=== PATIENT | female | born 1970 | race Caucasian/White ===

== ENCOUNTER 2018-05-07 19:24 | Emergency (ER) | payer MEDICARE, MEDICAID, SELFPAY ==
[2018-05-07] VITALS (24 sets, daily range): BP systolic 130–150; BP diastolic 64–91; PULSE 86–92; RESP 10–28; TEMP 37.1; O2SAT 95–100
--- NOTE | 2018-05-07 20:29 | ED.GENADUL_ITS ---
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 Normal tele and ecg. Has no abdominal pain now so do not feel imaging indicated as unlikely entities such as appendicitis, or hemorrhage given no pain now. She had normal aorta on CT done at [facility] so doubt AAA pt's labs unremarkable and she remains asymptomatic here, do not feel further w/ u indicated. She has f/u on Tuesday with pcp, return precautions givne - Differential Diagnosis syncope, orthostasis, anemia History of Present Illness - General Stated complaint: JUANJOSE Time Seen by Provider: 05/07/18 20:13 Source: patient Mode of arrival: EMS Limitations: no limitations - History of Present Illness Initial comments: 48 yo female come in with brief abdominal pain and syncope. she states she ate dinner then about 30 minutes later had lower abdominal pain and discomfort and lefthad 1 second of syncope. She now has no pain and denies every having any chest pain, headache, or shortness of breath. She has been dealing with nausea and vomit daily for months and states she is on cipro/flagyl after being seen in the ED about a week ago at [facility]. Complaint: syncope Onset/Timin -: hour(s) Location: abdomen Radiation: non-radiation Improves with: none Worsens with: none Associated Symptoms: other (abdominal pain) - Related Data Aspirin [Adult Low Dose Aspirin EC] 81 mg PO DAILY 07/04/13 Cyproheptadine HCl 4 - 8 mg PO HS 07/04/13 Insulin Aspart [NovoLOG Flexpen] 1 - 10 units SQ AC 07/04/13 Insulin Detemir [Levemir] 36 units SQ DAILY AM 07/04/13 Venlafaxine HCl 200 mg PO DAILY AM 10/30/13 Insulin Detemir [Levemir Flextouch] 38 units SC DAILY 08/26/15 Venlafaxine [Effexor] 100 mg PO DAILY 08/26/15 Ibuprofen 600 mg PO Q6H PRN #20 tablet 11/23/16 Ondansetron ODT [Zofran Odt] 4 mg PO Q8H PRN PRN #30 tabef 04/18/18 Allergies Allergy/AdvReac Type Severity Reaction Status Date / Time Penicillins Allergy Severe Anaphylaxsi Unverified 05/07/18 21:20 s erythromycin base Allergy Intermediate Skin Rash Unverified 05/07/18 21:20 Tetracyclines Allergy Intermediate incontinent Unverified 05/07/18 21:20 morphine AdvReac Intermediate Psychosis Unverified 05/07/18 21:20 bupropion HCl AdvReac Unknown Agitation Unverified 05/07/18 21:20 [From Wellbutrin] Review of Systems Constitutional: denies: fever Respiratory: denies: shortness of breath Cardiovascular: denies: chest pain Gastrointestinal: abdominal pain, nausea. denies: vomiting Musculoskeletal: denies: back pain Skin: denies: rash Neurological: denies: headache Comment: All other systems reviewed and negative Past Medical History - Past Medical History Medical history: diabetes Nonepileptic seizure disorder Surgical history: hysterectomy Family history: no significant family history - Social History Alcohol use: rarely Drug use: none General Exam - General Limitations: no limitations General appearance: alert, in no apparent distress - Head Head exam: Present: atraumatic - Eye Eye exam: Present: normal apperance - ENT ENT exam: Present: mucous membranes moist - Neck Neck exam: Present: normal inspection - Respiratory Respiratory exam: Absent: respiratory distress - Cardiovascular Cardiovascular Exam: Present: regular rate - GI/Abdominal GI/Abdominal exam: Present: soft. Absent: distended, tenderness, guarding, rebound, rigid - Neurological Exam Neurological exam: Present: alert, oriented X3 - Skin Skin exam: Present: warm Course Vital Signs - 24 hr 05/07/18 19:50 Temperature 98.8 F Pulse 88 Respiratory 20 Rate Blood Pressure 144/64 Pulse Oximetry 98
[2018-05-07 21:34] LABS: ALT 17 U/L (12-78); AST 11 U/L (15-37); Albumin 3.4 g/dL (3.4-5.0); Alkaline Phosphatase 99 U/L (46-116); BUN 6 mg/dL (7-18); Bilirubin, Total 0.2 mg/dL (0.2-1.0); CREATININE 0.79 mg/dL (0.55-1.02); Calcium 8.5 mg/dL (8.5-10.1); Chloride 103 mmol/L (98-107); Glucose 186 mg/dL (70-100); Lipase 116 U/L (73-393); Magnesium 1.9 mg/dL (1.8-2.4); Potassium 3.8 mmol/L (3.5-5.1); Sodium 140 mmol/L (136-145); Total Protein 6.6 g/dL (6.4-8.2)
[2018-05-07 21:38] LABS: Troponin I < 0.02 ng/mL (0.00-0.06)
[2018-05-07 21:44] LABS: Abs Immature Grans 0.02 k/cumm (0.0-0.09); Absolute Basophil Count 0.03 k/cumm (0.0-0.2); Absolute Lymphocyte Count 2.09 k/cumm (1.2-3.4); Absolute Monocyte Count 0.45 k/cumm (0.11-0.7); Absolute Neutrophil Count 3.56 k/cumm (1.2-6.7); Basophils % 0.5; Eosinophils % 3.1; HCT 39.3 % (36.0-46.0); HGB 13.6 g/dL (12.0-15.5); Immature Grans % 0.3; Lymphocytes % 32.9; Mean Corp. HGB Concentration 34.6 g/dL (32.0-36.0); Mean Corpuscular Hemoglobin 29.2 pg (27.0-33.0); Mean Corpuscular Volume 84.5 fL (80-95); Mean Platelet Volume 10.4 fL (8.0-11.0); Monocytes % 7.1; Neutrophils % 56.1; Platelet Count 164 x1000/uL (130-400); RBC 4.65 m/cumm (4.00-5.20); RBC Distribution Width 13.3 % (11.7-14.6); White Blood Cell Count 6.35 k/cumm (4.4-10.8)
[2018-05-08 00:20] VITALS: BP 145/91; PULSE 87; RESP 24; O2SAT 100
== END 2018-05-07 22:02 | disposition home or self-care (01) ==
PROVIDERS: Emergency Provider Emergency Medicine; PCP Nurse Practitioner
DX: R55 Syncope and collapse (principal); R10.30 Lower abdominal pain, unspecified; R11.2 Nausea with vomiting, unspecified; E11.9 Type 2 diabetes mellitus without complications; Z79.4 Long term (current) use of insulin
CPT/HCPCS: 93005; 99283 ×2; 36415; 80053; 83690; 83735; 84484; 85025; 93010

== ENCOUNTER 2018-07-10 11:59 | Outpatient (REF) | payer MEDICARE, SELFPAY ==
[2018-07-10 19:38] LABS: COMMENT (LAB VIEW ONLY) 102.58 mg/dL; Microalb ug/mg Crea 5.4 ug/mg Cr
== END 2018-07-10 12:19 ==
LOC: NCHCN 11:59
PROVIDERS: PCP Nurse Practitioner; Visit Provider Nurse Practitioner
DX: E11.9 Type 2 diabetes mellitus without complications (principal)
CPT/HCPCS: 82043; 82570

== ENCOUNTER 2019-06-26 08:46 | Outpatient (REF) | payer MEDICARE, MEDICAID, SELFPAY ==
[2019-06-26 13:40] LABS: COMMENT (LAB VIEW ONLY) 221.23 mg/dL; Microalb ug/mg Crea 4.6 ug/mg Cr
== END 2019-06-26 09:06 ==
LOC: NCHCN 08:46
PROVIDERS: PCP Nurse Practitioner; Visit Provider Nurse Practitioner
DX: E11.9 Type 2 diabetes mellitus without complications (principal)
CPT/HCPCS: 82043; 82570

== ENCOUNTER 2021-03-06 18:12 | Outpatient (CLI) | payer MEDICARE, MEDICAID, SELFPAY ==
--- NOTE | 2021-03-06 18:32 | DI.RAD_ITS ---
Exam(s) XR HAND LT COMPLETE EXAM: XR HAND LT COMPLETE CLINICAL HISTORY: Left Hand Pain. TECHNIQUE: 2D digital imaging was performed. COMPARISON: No exams were available for comparison FINDINGS: BONES: No acute fracture is present. No bony destructive lesion is seen. JOINTS: No dislocation present. There are mild degenerative changes of the hand particularly at the 1 st CMC joint. SOFT TISSUE: Normal. IMPRESSION: Mild degenerative changes of the hand. DATA REPOSITORY: RADIATION DOSE DELIVERED:
--- NOTE | 2021-03-06 18:59 | DI.VRAD_ITS ---
PROCEDURE INFORMATION: Exam: XR Left Hand Exam date and time: 03/06/2021 18:25 Age: 50 years old Clinical indication: Pain; Hand; Left TECHNIQUE: Imaging protocol: XR Left hand. Views: 3 or more views. COMPARISON: No relevant prior studies available. FINDINGS: Bones/joints: Mild degenerative changes in the radial aspect of the wrist. Minimal interphalangeal degenerative changes. No acute fracture or subluxation. Soft tissues: Unremarkable. IMPRESSION: No acute bony pathology. Dictated and Authenticated by: Tahira Weeks MD. Ordering:SURESH Malhotra MD
== END 2021-03-06 18:32 ==
PROVIDERS: PCP Nurse Practitioner; Visit Provider Physician Assistant Medical
DX: M79.642 Pain in left hand (principal); M18.12 Unilateral primary osteoarthritis of first carpometacarpal joint, left hand
CPT/HCPCS: 73130

== ENCOUNTER 2021-04-09 10:55 | Outpatient (REF) | payer MEDICARE, MEDICAID, SELFPAY ==
[2021-04-13 12:00] LABS: ALT 26 U/L (14-59); AST 15 U/L (15-37); Albumin 3.7 g/dL (3.4-5.0); Alkaline Phosphatase 103 U/L (46-116); Anion Gap 10.7 mmol/L (3-11); BUN 11 mg/dL (7-18); Bilirubin, Total 0.3 mg/dL (0.2-1.0); CO2 25.3 mmol/L (21.0-32.0); CREATININE 0.8 mg/dL (0.55-1.02); Calcium 8.7 mg/dL (8.5-10.1); Chloride 106 mmol/L (98-107); Glucose 181 mg/dL (74-106); Iron 52 ug/dL (50-170); Potassium 4.2 mmol/L (3.5-5.1); Sodium 142 mmol/L (136-145); Total Iron Binding Capacity 259 ug/dL (250-450); Total Protein 6.4 g/dL (6.4-8.2); Transferrin Sat 20 % (15-50)
[2021-04-13 12:27] LABS: COMMENT (LAB VIEW ONLY) 137.69 mg/dL; Microalb ug/mg Crea 1.4 ug/mg Cr
[2021-04-14 09:08] LABS: Misc Referral (UVM) See Comments
== END 2021-04-09 10:56 | disposition home or self-care (01) ==
LOC: NCHCN 10:55
PROVIDERS: PCP Nurse Practitioner; Visit Provider Nurse Practitioner
DX: E11.9 Type 2 diabetes mellitus without complications (principal); E78.5 Hyperlipidemia, unspecified; D50.9 Iron deficiency anemia, unspecified
CPT/HCPCS: 80053; 80061; 85027; 82043; 82570; 83036; 83540; 83550

== ENCOUNTER 2021-04-17 11:33 | Outpatient (REF) | payer MEDICARE, MEDICAID, SELFPAY ==
[2021-04-17 14:03] LABS: HCT 40.4 % (36.0-46.0); HGB 13.6 g/dL (11.2-15.7); MCH 28.3 pg (27.0-33.0); MCHC 33.7 % (32.0-36.0); MCV 84.2 fL (80-95); MPV 10.7 fL (8.0-11.0); Platelet Count 177 10^3/uL (130-400); RDW 13.2 % (11.7-14.6); RDW-SD 40.5 fL; WBC 5.53 10^3/uL (4.4-10.8)
== END 2021-04-17 11:34 | disposition home or self-care (01) ==
LOC: NCHCN 11:33
PROVIDERS: PCP Nurse Practitioner; Visit Provider Nurse Practitioner
DX: D50.9 Iron deficiency anemia, unspecified (principal)
CPT/HCPCS: 85027

== ENCOUNTER 2022-02-06 18:50 | Emergency (ER) | payer MEDICARE, MEDICAID, SELFPAY ==
[2022-02-06] VITALS (53 sets, daily range): BP systolic 175; BP diastolic 88; PULSE 111; RESP 14–26; TEMP 37–39.1; O2SAT 94–99
--- NOTE | 2022-02-06 19:15 | RT.EKG_ITS ---
APPROVED REPORT Exam: Resting ECG Reason for Exam: MIKO DOWELL Patient Location: E HR:107 bpm ECG Measurements Heart Rate 107 AXIS WA 156 P 49 QRSd 93 QRS 97 QT 331 T 14 QTc 442 Conclusion Sinus tachycardia...rate> 99 Probable left atrial enlargement...P >50mS, <-0.10mV V1 Low voltage, precordial leads...precordial leads <1.0mV
[2022-02-06 19:44] LABS: Abs Immature Grans 0.03 10^3/uL (0.0-0.06); Absolute Basophil Count 0.03 10^3/uL (0.0-0.2); Absolute Eosinophil Count 0.22 10^3/uL (0.0-0.7); Absolute Lymphocyte Count 0.88 10^3/uL (1.2-3.4); Absolute Monocyte Count 0.55 10^3/uL (0.1-0.8); Absolute Neutrophil Count 3.51 10^3/uL (1.2-6.7); Basophils % 0.6; Eosinophils % 4.2; HCT 41.8 % (36.0-46.0); HGB 13.8 g/dL (11.2-15.7); Immature Grans % 0.6; Lymphocytes % 16.9; MCV 85 fL (80-95); MPV 9.8 fL (8.0-11.0); Monocytes % 10.5; Neutrophils % 67.2; Platelet Count 154 10^3/uL (130-400); RBC 4.93 10^6/uL (3.93-5.22); RDW 13.2 % (11.7-14.6); RDW-SD 40.5 fL; WBC 5.22 10^3/uL (4.4-10.8)
--- NOTE | 2022-02-06 19:45 | DI.RAD_ITS ---
Exam(s) XR PORTABLE CHEST AP EXAM: XR PORTABLE CHEST AP CLINICAL HISTORY: SOB, CP, Fever. TECHNIQUE: 2D digital imaging was performed. COMPARISON: CT ABD PELVIS WITH CONTRAST from 09/18/2015 FINDINGS: Single AP portable view. Heart size is upper normal. The mediastinum is not widened. Lungs are clear. No infiltrates nor obvious pleural effusions. IMPRESSION: No acute pulmonary findings on this single AP portable view of the chest. DATA REPOSITORY: RADIATION DOSE DELIVERED: All CT scans at this facility use at least one of these dose optimization techniques: automated exposure control; mA and/or kV adjustment per patient size (includes targeted e xams where dose is matched to clinical indication); or iterative reconstruction.
--- NOTE | 2022-02-06 19:59 | W.ED.GENAD ---
Discharge Plan Disposition Patient Disposition: HOME Condition: Stable Discharge Details Clinical Impression: URI (upper respiratory infection) Primary Care Provider: Nancy Cagle ED Provider: Socorro German Home Meds and New Rx's Prescriptions: New doxycycline hyclate 100 mg tablet 100 mg PO BID 10 Days Qty: 20 0RF Continued Levemir U-100 Insulin 100 UNIT/ML solution 36 units SQ DAILY AM cyproheptadine 4 MG tablet 4 - 8 mg PO HS Label Comments: 04/18/18 ER- Pt states she has not taken in a long time insulin aspart U-100 [Novolog Flexpen U-100 Insulin] 300 UNITS/3 ML insulin pen 1 - 10 units SQ AC aspirin [Adult Low Dose Aspirin] 81 MG tablet,delayed release (DR/EC) 81 mg PO DAILY Label Comments: 04/18/18 ER- Pt states she hasnt been taking recently d/t upset stomach venlafaxine 100 MG tablet 200 mg PO DAILY AM Label Comments: 04/18/18 ER- Pt states she has not taken medications in months 08/26/15 takes daily at 2pm, pt takes 300mg total qd 11/21/15 venlafaxine 100 MG tablet 100 mg PO DAILY Label Comments: 04/18/18 ER- Pt states she has not taken medications in months pt takes at 2pm daily. Levemir FlexTouch U-100 Insuln 100 UNIT/ML insulin pen 38 units Sub-Q DAILY ondansetron 4 MG tablet,disintegrating 4 mg PO Q8H PRN PRN (Reason: Nausea / Vomiting) Qty: 30 0RF ibuprofen 600 MG tablet 600 mg PO Q6H PRN (Reason: Pain) Qty: 20 0RF Discharge Instructions Instructions: Upper Respiratory Infection (ED) Additional Instructions: Take the antibiotics as directed twice daily for the next 10 days. Follow up with primary care provider in 3-5 days. Return to ED sooner if any worsening or concerns. Increase oral fluids. Please take Tylenol or Ibuprofen with food every 4-6 hours as needed for pain and swelling. Stand Alone Forms: Work Release Referrals: Nancy Cagle [Primary Care Provider] - 5 days Discharge Data Discharge Date/Time-TO BE ENTERED AT DEPARTURE: 02/06/22 23:17 Medical Decision Making 51-year-old female presents to the ER with chief complaint of midsternal chest pain, shortness of breath and fever since . She reports increased fatigue and pain with deep breathing. Upon initial examination she is 102.4 orally. She does have a history of diabetes, she denies any nausea vomiting diarrhea denies any problems urinating. She has had 3 negative home COVID test. She denies any recent travel. 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 She last had some ibuprofen this morning approximately 600 mg. Cardiac work-up ordered including serial troponins, chest x-ray, Tylenol, fluVid. CBC shows no leukocytosis, D-dimer within normal limits 365, CMP largely within normal limits glucose is 290, magnesium 1.6, initial troponin within normal limits, proBNP is 139 COVID flu and RSV are all negative. 2239: Patient reevaluation, she reports feeling much better at this time. Did discuss x-ray and lab work with her she verbalized understanding. I will treat empirically for possible pneumonia due to patient's symptoms, fever and clinical presentation. Discussed return instructions and follow-up care patient verbalized understanding. Imaging Data Radiologic Study: Imaging: X-Ray Radiologist's impression: Imaging protocol: XR of the chest. Views: 1 view. COMPARISON: CT ABD PELVIS WITH CONTRAST 09/18/2015 15:25 FINDINGS: Lungs: No consolidation. Pleural spaces: No pleural effusion. No pneumothorax. Heart/Mediastinum: No cardiomegaly. Bones/joints: No acute fracture. IMPRESSION: Negative portable chest. Thank you for allowing us to participate in the care of your patient. Dictated and Authenticated by: Tahira Weeks MD [facility] General Mode of arrival: ambulatory. Date/Time Provider Initiated Documentation: 02/06/22 19:13. Limitations to Documentation: no limitations. Information obtained by: patient, RN notes reviewed and old records reviewed. HPI Narrative: 51-year-old female presents to the ER with chief complaint of midsternal chest pain, shortness of breath and fever since . She reports increased fatigue and pain with deep breathing. Upon initial examination she is 102.4 orally. She does have a history of diabetes, she denies any nausea vomiting diarrhea denies any problems urinating. She has had 3 negative home COVID test. She denies any recent travel. 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 She last had some ibuprofen this morning approximately 600 mg. Related Data Home Medications Medication Instructions Recorded Confirmed aspirin 81 mg tablet,delayed 81 mg PO DAILY 07/04/13 04/18/18 release (Adult Low Dose Aspirin) cyproheptadine 4 mg tablet 4 - 8 mg PO HS 07/04/13 02/06/22 insulin aspart U-100 100 unit/mL 1 - 10 units SQ AC 07/04/13 02/06/22 (3 mL) subcutaneous pen (Novolog Flexpen U-100 Insulin aspart) insulin detemir U-100 100 unit/mL 36 units SQ DAILY AM 07/04/13 02/06/22 subcutaneous solution (Levemir U-100 Insulin) venlafaxine 100 mg tablet 200 mg PO DAILY AM 10/30/13 03/23/18 insulin detemir U-100 100 unit/mL 38 units subcut DAILY 2200 08/26/15 02/06/22 (3 mL) subcutaneous pen (Levemir FlexTouch U-100 Insulin) venlafaxine 100 mg tablet 100 mg PO DAILY 2pm 08/26/15 03/23/18 ibuprofen 600 mg tablet 600 mg PO Q6H PRN Pain ##20 11/23/16 02/06/22 ondansetron 4 mg disintegrating 4 mg PO Q8H PRN PRN Nausea / 04/18/18 tablet Vomiting ##30 doxycycline hyclate 100 mg tablet 100 mg PO BID 10 days #20 tabs 02/06/22 Previous Rx's Medication Instructions Recorded ibuprofen 600 mg tablet 600 mg PO Q6H PRN Pain ##20 11/23/16 ondansetron 4 mg disintegrating 4 mg PO Q8H PRN PRN Nausea / 04/18/18 tablet Vomiting ##30 doxycycline hyclate 100 mg tablet 100 mg PO BID 10 days #20 tabs 02/06/22 Allergies Allergy/AdvReac Type Severity Reaction Status Date / Time Penicillins Allergy Severe Anaphylaxsi Unverified 02/06/22 19:15 s erythromycin base Allergy Intermediate Skin Rash Unverified 02/06/22 19:15 Tetracyclines Allergy Intermediate incontinent Unverified 02/06/22 19:15 morphine AdvReac Intermediate Psychosis Unverified 02/06/22 19:15 bupropion HCl AdvReac Unknown Agitation Unverified 02/06/22 19:15 [From Wellbutrin] General Stated Complaint: SOB GINA: 2 Review of Systems All systems reviewed & are unremarkable except as noted in HPI and below Constitutional Constitutional: Reports fatigue, Reports fever(s) and Reports lethargy Cardiovascular Cardiovascular: Reports chest pain and Reports dyspnea Respiratory Respiratory: Reports cough, Denies hemoptysis and Reports dyspnea Gastrointestinal Gastrointestinal: Denies diarrhea, Denies nausea and Denies vomiting Endocrine Endocrine: Reports fatigue PFSH All Active Problems (Updated 02/06/22 @ 22:43 by Socorro German) URI (upper respiratory infection) (Acute) Medical History Diabetes Social History Smoking/Tobacco Use Status: Never Smoking risk assessment performed?: Yes Alcohol Intake: never Drug use: Never Substance use type: does not use Do you feel safe at home: Yes Do you feel safe in your relationship?: Yes Exam Narrative Exam Narrative: Constitutional: Alert and oriented x3. Appears stated age. Obese body habitus. Feels hot. Head: Normocephalic, no trauma. Eyes: Pupils PERRL, Red reflex noted, EOM's intact. Eyelids symmetrical without lesions, discharge, or swelling. ENT: Bilateral TM's WNL, External ear normal to inspection, no mastoid TTP, swelling, or erythema, Nasal turbinates WNL, no nasal discharge. Normal dentition, Posterior pharynx WNL, no exudate. Chest: Mildly tachycardic rate of 115, normal S1, S2, distal pulses intact. Resp: Lungs clear to auscultation bilaterally, no wheezes, rales, or rhonchi. Abdomen: Soft, non-distended, Normoactive bowel sounds all 4 quads. Musculoskeletal: Normal gait, 5/5 strength to all four extremities. Skin: No suspicious rashes or lesions. Capillary refill less than 2 sec. Neurologic: Cranial nerves II-XII intact. Alert and oriented x 3. Motor: No deficits noted. Sensory: Intact bilaterally all 4 extremities. Reflexes: DTR's intact bilaterally.. Hematologic/Lymphatic: No ecchymosis, no lymphadenopathy. Course Vital Signs Vital signs: Vital Signs Temperature 37.0 C 02/06/22 19:07 Pulse 111 H 02/06/22 19:07 Respiratory Rate 18 02/06/22 19:07 Blood Pressure 175/88 H 02/06/22 19:07 Pulse Oximetry 95 02/06/22 19:07 Temperature 37.0 C 02/06/22 19:07 Temperature Source Oral 02/06/22 19:07 Pulse 111 H 02/06/22 19:07 Respiratory Rate 18 02/06/22 19:11 Respiratory Effort 02/06/22 19:11 Respiratory Depth Normal 02/06/22 19:11 Respiratory Pattern Normal 02/06/22 19:11 Blood Pressure 175/88 H 02/06/22 19:07 Blood Pressure Position Supine 02/06/22 19:07 Pulse Oximetry 95 02/06/22 19:07 Oxygen Delivery Method Room Air 02/06/22 19:07 Oxygen Flow Rate 0 02/06/22 19:07 Pain Level 3 02/06/22 19:11 Comment 02/06/22 19:07 Lab/Test Results Lab/Test Results: 02/06/22 19:30 Blood Blood Culture - Pending 02/06/22 19:17 Blood Blood Culture - Pending Laboratory Tests Range/Units 02/06/22 19:30 WBC (4.4-10.8) 10^3/uL 5.22 RBC (3.93-5.22) 10^6/uL 4.93 Hgb (11.2-15.7) g/dL 13.8 Hct (36.0-46.0) % 41.8 MCV (80-95) fL 85 MCH (27.0-33.0) pg 28.0 MCHC (32.0-36.0) % 33.0 RDW (11.7-14.6) % 13.2 Plt Count (130-400) 10^3/uL 154 MPV (8.0-11.0) fL 9.8 Immature Gran % 0.6 Neutrophils % 67.2 Lymphocytes % 16.9 Monocytes % 10.5 Eosinophils % 4.2 Basophils % 0.6 Nucleated RBC % (0.0-0.3) % 0.0 Absolute Neutrophils (1.2-6.7) 10^3/uL 3.51 Absolute Lymphocytes (1.2-3.4) 10^3/uL 0.88 L Absolute Monocytes (0.1-0.8) 10^3/uL 0.55 Absolute Eosinophils (0.0-0.7) 10^3/uL 0.22 Absolute Basophils (0.0-0.2) 10^3/uL 0.03
[2022-02-06 20:04] LABS: ALT 28 U/L (14-59); AST 11 U/L (15-37); Albumin 3.5 g/dL (3.4-5.0); Alkaline Phosphatase 114 U/L (46-116); Anion Gap 9.6 mmol/L (3-11); BUN 10 mg/dL (7-18); Bilirubin, Total 0.5 mg/dL (0.2-1.0); CO2 26.4 mmol/L (21.0-32.0); CREATININE 0.9 mg/dL (0.55-1.02); Calcium 8.6 mg/dL (8.5-10.1); Chloride 103 mmol/L (98-107); Glucose 290 mg/dL (74-106); Magnesium 1.6 mg/dL (1.8-2.4); NT-proBNP 139 pg/mL (<300); Potassium 3.8 mmol/L (3.5-5.1); Sodium 139 mmol/L (136-145); Total Protein 7.3 g/dL (6.4-8.2); Troponin I < 50 ng/L (<or=60)
[2022-02-06 20:15] LABS: D-Dimer 365 ng/mlFEU (<500)
[2022-02-06 20:21] LABS: COVID-19 PCR Negative (Negative); Influenza A PCR Negative (Negative); Influenza B PCR Negative (Negative); RSV PCR Negative (Negative)
[2022-02-06] MEDS: ACETAMINOPHEN 1,000 MG/100 ML BTL 400 MG IVPB (20:23)
[2022-02-06] MEDS: Normal Saline 500 ML IV (20:23)
[2022-02-06 20:27] LABS: Source Nasopharynx
--- NOTE | 2022-02-06 20:56 | DI.VRAD_ITS ---
PROCEDURE INFORMATION: Exam: XR Chest Exam date and time: 02/06/2022 20:10 Age: 51 years old Clinical indication: Pain; Fever and shortness of breath; Other: Unspecified; Patient HX: SOB, cp, fever TECHNIQUE: Imaging protocol: XR of the chest. Views: 1 view. COMPARISON: CT ABD PELVIS WITH CONTRAST 09/18/2015 15:25 FINDINGS: Lungs: No consolidation. Pleural spaces: No pleural effusion. No pneumothorax. Heart/Mediastinum: No cardiomegaly. Bones/joints: No acute fracture. IMPRESSION: Negative portable chest. Dictated and Authenticated by: Tahira Weeks MD. Ordering:LEON Quintanilla MD
[2022-02-06] MEDS: Doxycycline Hyclate 100 MG CAP PO (21:25)
[2022-02-06] MEDS: Normal Saline 1,000 ML 1000 ML IV (21:29)
[2022-02-06 22:18] LABS: Bilirubin Negative (Negative); Blood Trace-lysed (Negative); Clarity Clear (Clear); Glucose 500 mg/dL (Negative); Ketones Negative (Negative); Leukocyte Esterase Negative (Negative); Nitrite Negative (Negative); Specific Gravity 1.025 (1.005-1.025); Urobilinogen 0.2 EU/dL (Up TO 0.2); pH 5.5 (5-8)
[2022-02-06 22:23] LABS: Troponin I < 50 ng/L (<or=60)
[2022-02-06] MEDS: Ondansetron 4 MG/2 ML VIAL IVP (22:26)
[2022-02-06 22:58] LABS: Bacteria Many HPF (Negative); C & S Indicated? No/Sq. Contamination; Crystals Negative HPF (Negative); Epithelial Cells Many HPF (Negative); Mucus Trace (Negative); RBC 0-2 HPF (0-2); WBC 0-2 HPF (0-5)
== END 2022-02-06 23:17 | disposition home or self-care (01) ==
PROVIDERS: Emergency Provider Registered Nurse Emergency; PCP Nurse Practitioner Family
DX: J06.9 Acute upper respiratory infection, unspecified (principal); R50.9 Fever, unspecified; R07.9 Chest pain, unspecified; R06.02 Shortness of breath
CPT/HCPCS: 36415; 36416; 80053; 82962; 87040; 87637; 93005; 96361; 96374; 96375; 99284; 71045; 81003; 81015; 83735; 83880; 84484; 85025; 85379; 93010; J0131; J2405

== ENCOUNTER → 2022-03-03 13:27 | Outpatient (CLI) | payer MEDICARE, MEDICAID, SELFPAY ==
--- NOTE | 2022-03-03 | DI.US_ITS ---
Exam(s) US EXTREMITY VENOUS BI EXAM: US EXTREMITY VENOUS BI CLINICAL HISTORY: BILAT LEG SWELLING R22.43, LEFT CALF PAIN M79.662, ? DVT TECHNIQUE: Grayscale, color, and doppler imaging of the deep venous system of both lower extremities was performed. COMPARISON: CR,XR XR PORTABLE CHEST AP from 02/06/2022 FINDINGS: Left leg: No evidence of DVT. Normal compression augmentation properties. Right leg: There is normal compression augmentation of the common femoral vein. The majority of the length of the femoral vein in the right thigh is deep and was difficult to interrogate accurately on this study. There is no obvious DVT below the level of the knee nor the popliteal vein. Visualized greater saphenous vein is patent as was the profundal femoral vein IMPRESSION: 1. No ultrasound evidence of DVT in the left lower extremity.. 2. No obvious DVT in the right lower extremity. However, please note that a significant portion of the femoral vein in the thigh was not able to be adequately evaluated. It is located quite deep. DATA REPOSITORY:
[2022-03-03 14:26] LABS: Abs Immature Grans 0.05 10^3/uL (0.0-0.06); Absolute Basophil Count 0.05 10^3/uL (0.0-0.2); Absolute Eosinophil Count 0.15 10^3/uL (0.0-0.7); Absolute Lymphocyte Count 1.69 10^3/uL (1.2-3.4); Absolute Monocyte Count 0.54 10^3/uL (0.1-0.8); Basophils % 0.8; Eosinophils % 2.3; HCT 41.9 % (36.0-46.0); HGB 13.9 g/dL (11.2-15.7); Immature Grans % 0.8; Lymphocytes % 25.7; MCH 28.5 pg (27.0-33.0); MCHC 33.2 % (32.0-36.0); MCV 86 fL (80-95); MPV 10.3 fL (8.0-11.0); Monocytes % 8.2; Neutrophils % 62.2; Platelet Count 207 10^3/uL (130-400); RBC 4.88 10^6/uL (3.93-5.22); RDW 13.6 % (11.7-14.6); WBC 6.58 10^3/uL (4.4-10.8)
[2022-03-03 14:52] LABS: ALT 22 U/L (14-59); AST 17 U/L (15-37); Alkaline Phosphatase 107 U/L (46-116); Anion Gap 11.5 mmol/L (3-11); BUN 17 mg/dL (7-18); Bilirubin, Total 0.3 mg/dL (0.2-1.0); CO2 26.5 mmol/L (21.0-32.0); CREATININE 0.7 mg/dL (0.55-1.02); Calcium 8.9 mg/dL (8.5-10.1); Chloride 103 mmol/L (98-107); Glucose 55 mg/dL (74-106); Potassium 3.6 mmol/L (3.5-5.1); Sodium 141 mmol/L (136-145); Total Protein 7.1 g/dL (6.4-8.2)
[2022-03-03 15:13] LABS: NT-proBNP 53 pg/mL (<300)
== END ==
PROVIDERS: PCP Nurse Practitioner Family; Visit Provider Physician Assistant Medical
DX: R22.43 Localized swelling, mass and lump, lower limb, bilateral (principal); R06.02 Shortness of breath; M79.662 Pain in left lower leg
CPT/HCPCS: 80053; 83880; 85025; 93970

== ENCOUNTER → 2022-04-02 00:55 | Outpatient (CLI) | payer MEDICARE, MEDICAID, SELFPAY ==
--- NOTE | 2022-04-02 | DI.MAMMO_ITS ---
Exam(s) MAMMO SCREENING EXAM: MAMMO SCREENING CLINICAL HISTORY: SCREENING FOR BREAST CANCER, Z12.39 TECHNIQUE: Mammograms were interpreted according to the usual protocol including computer analysis w [employer] CAD system, tomosynthesis and C-view imaging. COMPARISON: 2016 FINDINGS: The breasts are composed of scattered fibroglandular densities, Breast Density category B. No suspicious masses or suspicious microcalcifications are seen. Vascular calcifications are inciden tally noted. No skin thickening or abnormal axillary lymph nodes are seen. There has been no significant change from prior exams. IMPRESSION: BI-RADS Category 1, Negative mammogram Yearly screening mammography is recommended. Breast Density - Category B, scattered fibroglandular densities. A negative radiographic report should not delay biopsy if a dominant or clinically suspicious mass is present. Up to ten percent of cancers are not identified on mammography. A negative report may reinforce clinical impression. Adenosis and dense breasts may obscure an underlying neoplasm. False positive reports average 6 to 10%. Patient will receive a letter notifying them of these results.
== END ==
PROVIDERS: PCP Nurse Practitioner Family; Visit Provider Physician Assistant
DX: Z12.31 Encounter for screening mammogram for malignant neoplasm of breast (principal)
CPT/HCPCS: 77063; 77067

== ENCOUNTER 2022-05-12 07:28 | Outpatient (CLI) | payer MEDICARE, MEDICAID, SELFPAY ==
[2022-05-12 08:09] LABS: ALT 22 U/L (14-59); AST 14 U/L (15-37); Albumin 3.4 g/dL (3.4-5.0); Alkaline Phosphatase 93 U/L (46-116); BUN 14 mg/dL (7-18); Bilirubin, Total 0.4 mg/dL (0.2-1.0); CREATININE 0.8 mg/dL (0.55-1.02); Calcium 8.5 mg/dL (8.5-10.1); Calculated LDL 95 mg/dL (<100); Chloride 105 mmol/L (98-107); Cholesterol 174 mg/dL (<200); Glucose 116 mg/dL (74-106); HDL Cholesterol 55 mg/dL (40-60); Potassium 3.9 mmol/L (3.5-5.1); Sodium 141 mmol/L (136-145); TSH 3.06 uIU/mL (0.36-3.74); Total Protein 7.1 g/dL (6.4-8.2); Triglyceride 122 mg/dL (<150)
[2022-05-12 08:14] LABS: Hemoglobin A1C 6.5 % (<5.7)
[2022-05-12 17:32] LABS: Albumin, Ur < 0.6 mg/dL (See Note); Creatinine, Ur 129.2 mg/dL (See Note)
== END 2022-05-12 07:29 | disposition home or self-care (01) ==
LOC: LBO 07:29
PROVIDERS: PCP Nurse Practitioner Family; Visit Provider Physician Assistant
DX: E11.65 Type 2 diabetes mellitus with hyperglycemia (principal); E04.9 Nontoxic goiter, unspecified
CPT/HCPCS: 36415; 80053; 80061; 82043; 82570; 83036; 84443

== ENCOUNTER 2022-07-14 19:21 | Outpatient (REF) | payer MEDICARE, MEDICAID, SELFPAY ==
[2022-07-16 11:00] LABS: COVID-19 RT-PCR UVMMC Result Positive (Negative)
== END 2022-07-14 19:22 | disposition home or self-care (01) ==
LOC: LBN 19:21
PROVIDERS: PCP Nurse Practitioner Family; Visit Provider Physician Assistant Medical
DX: Z20.822 Contact with and (suspected) exposure to COVID-19 (principal); J02.9 Acute pharyngitis, unspecified
CPT/HCPCS: U0003; 87081

== ENCOUNTER 2022-07-16 14:15 | Outpatient (REF) | payer MEDICARE, MEDICAID, SELFPAY ==
[2022-07-16 15:59] LABS: ALT 19 U/L (14-59); AST 15 U/L (15-37); Albumin 3.6 g/dL (3.4-5.0); Alkaline Phosphatase 102 U/L (46-116); Anion Gap 10.8 mmol/L (3-11); BUN 16 mg/dL (7-18); Bilirubin, Total 0.4 mg/dL (0.2-1.0); CO2 26.2 mmol/L (21.0-32.0); CREATININE 0.9 mg/dL (0.55-1.02); Calcium 9.2 mg/dL (8.5-10.1); Chloride 102 mmol/L (98-107); Estimated GFR 76.92 (mL/min/1.73m2); Glucose 292 mg/dL (74-106); Potassium 4.1 mmol/L (3.5-5.1); Sodium 139 mmol/L (136-145)
== END 2022-07-16 14:16 | disposition home or self-care (01) ==
LOC: LBN 14:15
PROVIDERS: PCP Nurse Practitioner Family; Visit Provider Physician Assistant Medical
DX: U07.1 COVID-19 (principal)
CPT/HCPCS: 80053

== ENCOUNTER 2022-07-23 19:36 | Outpatient (REF) | payer MEDICARE, MEDICAID, SELFPAY | END 2022-07-23 19:37 | disposition home or self-care (01) | LOC: LBN 19:36 | PROVIDERS: PCP Nurse Practitioner Family; Visit Provider Physician Assistant Medical | DX: J02.9 Acute pharyngitis, unspecified (principal) | CPT/HCPCS: 87070 ==

== ENCOUNTER → 2022-09-03 09:52 | Outpatient (CLI) | payer MEDICARE, MEDICAID, SELFPAY ==
--- NOTE | 2022-09-03 | DI.RAD_ITS ---
Exam(s) XR FOOT LT COMPLETE EXAM: XR FOOT LT COMPLETE CLINICAL HISTORY: LT FOOT PAIN, M79.672, ? HEEL SPURS. TECHNIQUE: 2D digital imaging was performed of the left foot. Three images were obtained. AP, obli que and lateral views were obtained. COMPARISON: No exams were available for comparison FINDINGS: BONES: No acute fracture is present. No bony destructive lesion is seen. There is a small plantar xin caneal spur. JOINTS: No dislocation present. SOFT TISSUE: Normal. IMPRESSION: 1. No acute abnormality. 2. Small plantar calcaneal spur. DATA REPOSITORY: RADIATION DOSE DELIVERED:
== END ==
PROVIDERS: PCP Nurse Practitioner Family; Visit Provider Physician Assistant Medical
DX: M77.32 Calcaneal spur, left foot (principal)
CPT/HCPCS: 73630

== ENCOUNTER 2023-01-12 19:14 | Outpatient (REF) | payer MEDICARE, MEDICAID, SELFPAY ==
--- NOTE | 2023-01-12 | DI.RAD_ITS ---
Exam(s) XR FOOT LT COMPLETE XR ANKLE LT COMPLETE EXAM: XR ANKLE LT COMPLETE CLINICAL HISTORY: PAIN IN LEFT ANKLE TECHNIQUE: 2D digital imaging was performed. Three views. COMPARISON: CR XR FOOT LT COMPLETE from 09/03/2022 CR,XR XR FOOT LT COMPLETE from 01/12/2023 FINDINGS: BONES: No acute fracture is present. No bony destructive lesion is seen. Prominent plantar calcanea l spur. Spur appears more prominent when compared with previous exam. JOINTS:The ankle mortise is normally aligned. SOFT TISSUE: Marked soft tissue swelling around the medial malleolus. Mild vascular calcifications. IMPRESSION: Marked soft tissue swelling. Heel spur. DATA REPOSITORY: RADIATION DOSE DELIVERED:
--- NOTE | 2023-01-12 18:56 | DI.VRAD_ITS ---
PROCEDURE INFORMATION: Exam: XR Left Foot Exam date and time: 01/12/2023 18:30 Age: 52 years old Clinical indication: Other: Pain TECHNIQUE: Imaging protocol: Radiologic exam of the left foot. Views: 3 or more views. COMPARISON: CR XR FOOT LT COMPLETE 09/03/2022 08:05 FINDINGS: Bones/joints: Plantar calcaneal spur. No acute fracture or subluxation in the foot. Soft tissues: Normal. Vasculature: Atherosclerosis. IMPRESSION: No acute bony pathology. Dictated and Authenticated by: Tahira Weeks MD. Ordering:SURESH Malhotra MD
--- NOTE | 2023-01-12 18:57 | DI.VRAD_ITS ---
PROCEDURE INFORMATION: Exam: XR Left Ankle Exam date and time: 01/12/2023 18:27 Age: 52 years old Clinical indication: Pain; Ankle and foot; Left TECHNIQUE: Imaging protocol: Radiologic exam of the left ankle. Views: 3 or more views. COMPARISON: CR XR FOOT LT COMPLETE 09/03/2022 08:05 FINDINGS: Bones/joints: Plantar calcaneal spur. No acute fracture or subluxation. Soft tissues: Generalized soft tissue swelling is more pronounced laterally. Vasculature: Atherosclerosis. IMPRESSION: No acute bony pathology. Dictated and Authenticated by: Tahira Weeks MD. Ordering:SURESH Malhotra MD
== END 2023-01-12 19:34 ==
LOC: DI 19:14
PROVIDERS: PCP Physician Assistant; Visit Provider Physician Assistant Medical
DX: M25.572 Pain in left ankle and joints of left foot (principal)
CPT/HCPCS: 73610; 73630

== ENCOUNTER 2023-05-11 18:38 | Outpatient (REF) | payer MEDICARE, MEDICAID, SELFPAY ==
[2023-05-11 21:38] LABS: COMMENT (LAB VIEW ONLY) 187.85 mg/dL; Microalb ug/mg Crea 3.9 ug/mg Cr
== END 2023-05-11 18:39 | disposition home or self-care (01) ==
LOC: NCHCN 18:38
PROVIDERS: PCP Physician Assistant; Visit Provider Physician Assistant
DX: E11.9 Type 2 diabetes mellitus without complications (principal)
CPT/HCPCS: 82043; 82570

== ENCOUNTER 2023-11-11 15:23 | Outpatient (REF) | payer MEDICARE, MEDICAID, SELFPAY ==
[2023-11-11 15:10] LABS: Bacteria Moderate HPF (Negative); C & S Indicated? C&S Done As Ordered; Casts Negative LPF (Negative); Crystals Negative HPF (Negative); Epithelial Cells Rare HPF (Negative); Mucus Negative (Negative); WBC >50 HPF (0-5)
== END 2023-11-11 15:24 | disposition home or self-care (01) ==
LOC: LBN 15:23
PROVIDERS: PCP Physician Assistant; Visit Provider Physician Assistant Medical
DX: R30.0 Dysuria (principal)
CPT/HCPCS: 87077; 81015; 87070; 87086; 87186; 87480; 87510; 87660

== ENCOUNTER 2023-12-26 20:35 | Inpatient (IN) | payer MEDICARE, SELFPAY ==
[2023-12-26] VITALS (24 sets, daily range): BP systolic 135–157; BP diastolic 38–80; PULSE 87–121; RESP 15–25; TEMP 38.5; O2SAT 91–96
[2023-12-26 21:05] LABS: Bilirubin Negative (Negative); Blood Small (Negative); Clarity Clear (Clear); Glucose Negative (Negative); Ketones Negative (Negative); Leukocyte Esterase Trace (Negative); Nitrite Negative (Negative); Urobilinogen 0.2 mg/dL (Up to 0.2)
[2023-12-26 21:13] LABS: Abs Immature Grans 0.04 10^3/uL (0.0-0.06); Absolute Basophil Count 0.04 10^3/uL (0.0-0.2); Absolute Eosinophil Count 0.04 10^3/uL (0.0-0.7); Absolute Lymphocyte Count 0.69 10^3/uL (1.2-3.4); Absolute Monocyte Count 0.22 10^3/uL (0.1-0.8); Absolute Neutrophil Count 8.54 10^3/uL (1.2-6.7); BE (Venous) 5 mmol/L (-2-3); Basophils % 0.4; Eosinophils % 0.4; HCO3 (Venous) 30 mmol/L (23-28); HCT 44.8 % (36.0-46.0); HGB 14.8 g/dL (11.2-15.7); Immature Grans % 0.4; Lymphocytes % 7.2; MCH 28.7 pg (27.0-33.0); MCV 87 fL (80-95); MPV 9.5 fL (8.0-11.0); Monocytes % 2.3; Neutrophils % 89.3; O2 Sat (Venous) 61 %; Platelet Count 157 10^3/uL (130-400); RBC 5.15 10^6/uL (3.93-5.22); RDW 13.6 % (11.7-14.6); RDW-SD 43.3 fL; TCO2 (Venous) 26 mmol/L (24-29); WBC 9.57 10^3/uL (4.4-10.8); pCO2 (Venous) 45 mmHg (41-51); pH (Venous) 7.43 (7.31-7.41); pO2 (Venous) 29 mmHg
[2023-12-26 21:14] LABS: Lactate 1.5 mmol/L (0.6-1.4)
[2023-12-26 21:16] LABS: Bacteria Rare HPF (Negative); C & S Indicated? Yes; Crystals Negative HPF (Negative); Epithelial Cells Few HPF (Negative); Mucus Negative (Negative)
[2023-12-26] MEDS: CIPROFLOXACIN 400 MG/200 ML BAG 200 MG IVPB (21:18)
[2023-12-26] MEDS: Lactated Ringers 1,000 ML 2000 ML IV ×2 (21:19→22:13)
[2023-12-26] MEDS: Ketorolac 15 MG/ML VIAL IVP (21:19)
[2023-12-26 21:27] LABS: INR 0.9 (0.9-1.1); PTT Activated 24.8 sec (23.6-32.8); Prothrombin Time 9.3 sec (9.1-11.1)
[2023-12-26 21:29] LABS: ALT 28 U/L (14-59); AST 16 U/L (15-37); Albumin 3.8 g/dL (3.4-5.0); Alkaline Phosphatase 110 U/L (46-116); Anion Gap 10.5 mmol/L (3-11); BUN 17 mg/dL (7-18); Bilirubin, Total 0.4 mg/dL (0.2-1.0); CO2 29.5 mmol/L (21.0-32.0); Calcium 8.9 mg/dL (8.5-10.1); Chloride 105 mmol/L (98-107); Estimated GFR 67.36 (mL/min/1.73m2); Potassium 3.7 mmol/L (3.5-5.1); Sodium 145 mmol/L (136-145); Total Protein 7.6 g/dL (6.4-8.2)
[2023-12-26 21:32] LABS: Glucose 32 mg/dL (74-106)
--- NOTE | 2023-12-26 21:35 | W.ED.GENAD ---
Discharge Plan Disposition Patient Disposition: Admit to [facility] Condition: Serious Discharge Details Clinical Impression: Hypoglycemia, Pyelonephritis Primary Care Provider: Kwesi Ocasio ED Provider: Edith Storm Home Meds and New Rx's Prescriptions: No Action magnesium chloride 64 mg tablet,delayed release (DR/EC) 64 mg PO DAILY Hold Instructions: Pt Stopped/Never Started multivitamin Tablet 1 tab PO DAILY cholecalciferol (vitamin D3) 50 mcg (2,000 unit) capsule 50 mcg PO DAILY Levemir U-100 Insulin 100 UNIT/ML solution 36 units SQ DAILY AM cyproheptadine 4 MG tablet 4 - 8 mg PO HS PRN Patient Comments: 04/18/18 ER- Pt states she has not taken in a long time Levemir FlexTouch U100 Insulin 100 UNIT/ML insulin pen 38 units Sub-Q DAILY insulin lispro [Humalog KwikPen Insulin] 100 unit/mL insulin pen 1 sliding scale dose subcut DAILY PRN HPI General Mode of arrival: ambulatory. Date/Time Provider Initiated Documentation: 12/26/23 20:50. Limitations to Documentation: no limitations. Information obtained by: patient. HPI Narrative: 53yo F IDDM presenting for presenting for dysuria and urinary frequency for the last 6 days. Now with chills and bilateral flank pain. Pain is located in her low lumbar region on both sides. No alleviating or aggravating factors. Afebrile at home. Mild nausea, no vomiting. No abdominal pain or suprapubic pain. No vaginal discharge. Recently changed insulin types 2/t insurance coverage. She is otherwise in her usual state of health with no rash, chest pain, shortness of breath, or other concerns. Related Data Home Medications Medication Instructions Recorded Confirmed cyproheptadine 4 mg tablet 4 - 8 mg PO HS PRN 07/04/13 12/26/23 insulin detemir U-100 100 unit/mL 36 units SQ DAILY AM 07/04/13 12/26/23 subcutaneous solution (Levemir U-100 Insulin) insulin detemir U-100 100 unit/mL 38 units subcut DAILY 2200 08/26/15 12/26/23 (3 mL) subcutaneous pen (Levemir FlexTouch U-100 Insulin) cholecalciferol (vitamin D3) 50 50 mcg PO DAILY 10/25/22 12/26/23 mcg (2,000 unit) capsule magnesium chloride 64 mg 64 mg PO DAILY 10/25/22 12/26/23 (magnesium chloride) tablet,delayed release multivitamin 1 tab PO DAILY 10/25/22 12/26/23 insulin lispro 100 unit/mL 1 sliding scale dose subcut DAILY 12/26/23 12/26/23 subcutaneous pen (Humalog KwikPen PRN (U-100) Insulin) Allergies Allergy/AdvReac Type Severity Reaction Status Date / Time Penicillins Allergy Severe Anaphylaxsi Unverified 12/26/23 22:29 s erythromycin base Allergy Intermediate Skin Rash Unverified 12/26/23 22:29 Tetracyclines Allergy Intermediate incontinent Unverified 12/26/23 22:29 morphine AdvReac Intermediate Psychosis Unverified 12/26/23 22:29 bupropion HCl AdvReac Unknown Agitation Unverified 12/26/23 22:29 [From Wellbutrin] General Stated Complaint: Urinary GINA: 3 Review of Systems Narrative: see HPI Exam Narrative Exam Narrative: General: Alert, well appearing, well nourished, in no acute distress. Head: Normocephalic, atraumatic Neck: Trachea midline, ?Neck supple. ENT: ?MMM.? No oropharygeal lesions or exudate. Cardiac: ?Tachycardiac, regular, no murmurs appreciated Resp: No respiratory distress. CTAB. Back: Low lumbar region TTP bilaterally Abd: ?Soft, non-distended, nontender : ?No suprapubic tenderness. No CVA tenderness. Extremities: ?No deformities.? No peripheral edema. Neurologic: GCS 15. ? Moves all extremities freely against gravity Course Vital Signs Vital signs: Vital Signs Temperature 38.5 C H 12/26/23 20:40 Pulse 121 H 12/26/23 20:40 Respiratory Rate 20 12/26/23 20:40 Blood Pressure 157/80 H 12/26/23 20:40 Pulse Oximetry 95 12/26/23 20:40 Temperature 38.5 C H 12/26/23 20:40 Temperature Source Tympanic 12/26/23 20:40 Pulse 121 H 12/26/23 20:40 Respiratory Rate 20 12/26/23 20:40 Blood Pressure 157/80 H 12/26/23 20:40 Blood Pressure Position Sitting 12/26/23 20:40 Pulse Oximetry 95 12/26/23 20:40 Oxygen Delivery Method Room Air 12/26/23 20:40 Oxygen Flow Rate 0 12/26/23 20:40 Pain Level 6 12/26/23 20:40 Comment Has taken ibuprofen and APAP approx 2 hours ago. 12/26/23 20:40 Lab/Test Results Lab/Test Results: 12/26/23 21:20 Blood Blood Culture - Pending 12/26/23 20:49 Urine - Reflex from Ua Urine Culture - Pending 12/26/23 21:02 Blood Blood Culture - Pending Laboratory Tests Range/Units 12/26/23 12/26/23 20:49 21:02 WBC (4.4-10.8) 10^3/uL 9.57 RBC (3.93-5.22) 10^6/uL 5.15 Hgb (11.2-15.7) g/dL 14.8 Hct (36.0-46.0) % 44.8 MCV (80-95) fL 87 MCH (27.0-33.0) pg 28.7 MCHC (32.0-36.0) % 33.0 RDW (11.7-14.6) % 13.6 Plt Count (130-400) 10^3/uL 157 MPV (8.0-11.0) fL 9.5 Immature Gran % 0.4 Neutrophils % 89.3 Lymphocytes % 7.2 Monocytes % 2.3 Eosinophils % 0.4 Basophils % 0.4 Nucleated RBC % (0.0-0.3) % 0.0 Absolute Neutrophils (1.2-6.7) 10^3/uL 8.54 H Absolute Lymphocytes (1.2-3.4) 10^3/uL 0.69 L Absolute Monocytes (0.1-0.8) 10^3/uL 0.22 Absolute Eosinophils (0.0-0.7) 10^3/uL 0.04 Absolute Basophils (0.0-0.2) 10^3/uL 0.04 PT (9.1-11.1) sec 9.3 INR (0.9-1.1) 0.9 APTT (23.6-32.8) sec 24.8 VBG pH (7.31-7.41) 7.43 H VBG pCO2 (41-51) mmHg 45 VBG pO2 mmHg 29 VBG HCO3 (23-28) mmol/L 30 H VBG Total CO2 (24-29) mmol/L 26 VBG O2 Saturation % 61 VBG Base Excess (-2-3) mmol/L 5 H VBG Lactate (0.6-1.4) mmol/L 1.5 H Sodium (136-145) mmol/L 145 Potassium (3.5-5.1) mmol/L 3.7 Chloride (98-107) mmol/L 105 Carbon Dioxide (21.0-32.0) mmol/L 29.5 Anion Gap (3-11) mmol/L 10.5 BUN (7-18) mg/dL 17 Creatinine (0.55-1.02) mg/dL 1.0 Est GFR (CKD-EPI 2020) (mL/min/1.73m2) 67.36 Glucose (74-106) mg/dL 32 L* Calcium (8.5-10.1) mg/dL 8.9 Total Bilirubin (0.2-1.0) mg/dL 0.4 AST (15-37) U/L 16 ALT (14-59) U/L 28 Alkaline Phosphatase (46-116) U/L 110 Total Protein (6.4-8.2) g/dL 7.6 Albumin (3.4-5.0) g/dL 3.8 Urine Color (Yellow) Yellow Urine Clarity (Clear) Clear Urine pH (5-8) 6.0 Ur Specific [place] (1.005-1.025) 1.010 Urine Protein (Neg-Trace) mg/dL Negative Urine Ketones (Negative) mg/dL Negative Urine Blood (Negative) Small H Urine Nitrite (Negative) Negative Urine Bilirubin (Negative) Negative Urine Urobilinogen (Up to 0.2) mg/dL 0.2 Ur Leukocyte Esterase (Negative) Trace H Urine RBC (0-2) HPF 3-5 H Urine WBC (0-5) HPF 5-10 Ur Epithelial Cells (Negative) HPF Few Urine Crystals (Negative) HPF Negative Urine Bacteria (Negative) HPF Rare Urine Mucus (Negative) Negative Ur Culture Indicated? Yes Urine Glucose (Negative) mg/dL Negative Medical Decision Making 53yo F IDDM presenting for presenting for dysuria and urinary frequency for the last 6 days. Now with chills and bilateral flank pain. Febrile to 38.5 and tachycardiac to 120's on arrival, symptoms consistent with UTI. Concerning for potential sepsis. Will treat empirically with IV ciprofloxacin (pt with anaphalaxis to penicillins, will avoid ceftriaxone), 2L IVFB, blood cultures drawn. Given toradol for pain/fever. Flank pain raises consideration for pyelonephritis however patient localize pain to low lumbar area and hsa no CVA tenderness on exam. Fingerstick in 30's on arrival; given PO juice/crackers, repeat fingerstick up 60's. Unclear if hypoglycmeia 2/t infection or change in insulin. Labs reviewed as below. CBC reassuring with no leukoctysois (does have neutrophlia), CMP redemonstrates hypoglycemia (drawn at same time as fs) otherwise no significant abnormalities, VBG reassuring pH 7.43 and no acidosis, lactate 1.5, procal reassuring. UA consistent with infection. On reassessment HR improved to mid 90's. Remains moderately hypoglycemic; repeat fingerstick 58 which increased to 70's again after some PO. Patient does not feel up to taking anything other than sips of juice and crackers. When bolus complete will switch to mIVF with dextrose. Labs overall reassuring however patient does meet SIRS criteria on arrival and with persistent hypoglycemia (though may be related to recent change in insulins) there is some question of end-organ involvement. Not definitively septic, however would benefit from at least overnight observation for continued fluids/antibiotics/trending labs/close monitoring of blood sugar. Patient is amenable to this. POCUS exam graciously performed by my colleague Dr. Olivas with no hydronephrosis to suggest obstruction. Discussed with [facility] hospitalist Dr. Nunez and patient accepted to medicine service; awaiting admission orders and transfer to the floor. Lab Data Lab results reviewed: Yes I reviewed the patient's lab results. Labs: 12/26/23 21:20 Blood Blood Culture - Pending 12/26/23 20:49 Urine - Reflex from Ua Urine Culture - Pending 12/26/23 21:02 Blood Blood Culture - Pending Laboratory Tests Range/Units 12/26/23 12/26/23 20:49 21:02 WBC (4.4-10.8) 10^3/uL 9.57 RBC (3.93-5.22) 10^6/uL 5.15 Hgb (11.2-15.7) g/dL 14.8 Hct (36.0-46.0) % 44.8 MCV (80-95) fL 87 MCH (27.0-33.0) pg 28.7 MCHC (32.0-36.0) % 33.0 RDW (11.7-14.6) % 13.6 Plt Count (130-400) 10^3/uL 157 MPV (8.0-11.0) fL 9.5 Immature Gran % 0.4 Neutrophils % 89.3 Lymphocytes % 7.2 Monocytes % 2.3 Eosinophils % 0.4 Basophils % 0.4 Nucleated RBC % (0.0-0.3) % 0.0 Absolute Neutrophils (1.2-6.7) 10^3/uL 8.54 H Absolute Lymphocytes (1.2-3.4) 10^3/uL 0.69 L Absolute Monocytes (0.1-0.8) 10^3/uL 0.22 Absolute Eosinophils (0.0-0.7) 10^3/uL 0.04 Absolute Basophils (0.0-0.2) 10^3/uL 0.04 PT (9.1-11.1) sec 9.3 INR (0.9-1.1) 0.9 APTT (23.6-32.8) sec 24.8 VBG pH (7.31-7.41) 7.43 H VBG pCO2 (41-51) mmHg 45 VBG pO2 mmHg 29 VBG HCO3 (23-28) mmol/L 30 H VBG Total CO2 (24-29) mmol/L 26 VBG O2 Saturation % 61 VBG Base Excess (-2-3) mmol/L 5 H VBG Lactate (0.6-1.4) mmol/L 1.5 H Sodium (136-145) mmol/L 145 Potassium (3.5-5.1) mmol/L 3.7 Chloride (98-107) mmol/L 105 Carbon Dioxide (21.0-32.0) mmol/L 29.5 Anion Gap (3-11) mmol/L 10.5 BUN (7-18) mg/dL 17 Creatinine (0.55-1.02) mg/dL 1.0 Est GFR (CKD-EPI 2020) (mL/min/1.73m2) 67.36 Glucose (74-106) mg/dL 32 L* Calcium (8.5-10.1) mg/dL 8.9 Total Bilirubin (0.2-1.0) mg/dL 0.4 AST (15-37) U/L 16 ALT (14-59) U/L 28 Alkaline Phosphatase (46-116) U/L 110 Total Protein (6.4-8.2) g/dL 7.6 Albumin (3.4-5.0) g/dL 3.8 Procalcitonin ng/mL 0.2 Urine Color (Yellow) Yellow Urine Clarity (Clear) Clear Urine pH (5-8) 6.0 Ur Specific [place] (1.005-1.025) 1.010 Urine Protein (Neg-Trace) mg/dL Negative Urine Ketones (Negative) mg/dL Negative Urine Blood (Negative) Small H Urine Nitrite (Negative) Negative Urine Bilirubin (Negative) Negative Urine Urobilinogen (Up to 0.2) mg/dL 0.2 Ur Leukocyte Esterase (Negative) Trace H Urine RBC (0-2) HPF 3-5 H Urine WBC (0-5) HPF 5-10 Ur Epithelial Cells (Negative) HPF Few Urine Crystals (Negative) HPF Negative Urine Bacteria (Negative) HPF Rare Urine Mucus (Negative) Negative Ur Culture Indicated? Yes Urine Glucose (Negative) mg/dL Negative Quality:SDOH Health Related Social Needs: No Data to Display PFSH All Active Problems (Updated 12/26/23 @ 22:55 by Edith Storm MD) Pyelonephritis (Acute) Hypoglycemia (Acute) Hyperlipidemia (Acute) Depression (Chronic) Onychomycosis (Acute) Plantar fascial fibromatosis of left foot (Acute) Pain in left foot (Acute) Calcaneal spur (Acute) Medical History COVID Diabetes Dissociative identity disorder Grief at loss of child Pseudoseizure PTSD (post-traumatic stress disorder) Social History Smoking/Tobacco Use Status: Never Smoking risk assessment performed?: Yes Alcohol Intake: never Drug use: Never Substance use type: does not use Do you feel safe at home: Yes Do you feel safe in your relationship?: Yes
[2023-12-26 21:57] LABS: Procalcitonin 0.2 ng/mL
--- NOTE | 2023-12-26 23:10 | W.EDPROG ---
Date of service: 12/26/23 Time of Service: 23:10 Medical Decision Making I participated in this patient's care by performing a bedside renal ultrasound to assess for hydronephrosis. Patient has no history of ureterolithiasis. She has no hydronephrosis on bedside ultrasound. Quality:[facility] Health Related Social Needs: No Data to Display Discharge Plan Disposition Patient Disposition: Admit to [facility] Condition: Serious Discharge Details Clinical Impression: Hypoglycemia, Pyelonephritis Primary Care Provider: Kwesi Ocasio ED Provider: Edith Storm Home Meds and New Rx's Prescriptions: No Action magnesium chloride 64 mg tablet,delayed release (DR/EC) 64 mg PO DAILY Hold Instructions: Pt Stopped/Never Started multivitamin Tablet 1 tab PO DAILY cholecalciferol (vitamin D3) 50 mcg (2,000 unit) capsule 50 mcg PO DAILY Levemir U-100 Insulin 100 UNIT/ML solution 36 units SQ DAILY AM cyproheptadine 4 MG tablet 4 - 8 mg PO HS PRN Patient Comments: 04/18/18 ER- Pt states she has not taken in a long time Levemir FlexTouch U100 Insulin 100 UNIT/ML insulin pen 38 units Sub-Q DAILY insulin lispro [Humalog KwikPen Insulin] 100 unit/mL insulin pen 1 sliding scale dose subcut DAILY PRN POCUS Exam (ED) Limited Retroperitoneal(Renal)Exam DATE OF EXAM: 12/26/23 TIME OF EXAM: 23:20 PROVIDER THAT PERFORMED THE STUDY: Moshe Olivas IS THIS A REPEAT EXAM DURING THIS ENCOUNTER: No REASON FOR EXAM: Other indication: Flank pain VISUALIZED STRUCTURES: Left kidney, Right kidney, Left ureter and Other structures: Pelvis PERTINENT FINDINGS/IMPRESSION: no hydronephrosis present INCIDENTAL FINDINGS: No obvious hydronephrosis bilaterally. No obvious UVJ stone. Exam complete
[2023-12-26] MEDS: DEXTROSE 5%-0.45% SALINE 1,000 ML 125 ML IV (23:36)
[2023-12-27] VITALS (11 sets, daily range): BP systolic 113–134; BP diastolic 47–60; PULSE 70–86; RESP 13–21; TEMP 36.1–36.6; O2SAT 91–97
--- NOTE | 2023-12-27 00:16 | HPE_ITS ---
Date of service: 12/26/23 Time of Service: 23:30 Assessment and Plan Assessment and plan (1) Sepsis syndrome: Start date: 12/26/23 Status: Acute Assessment and plan: This is a 53-year-old lady with type 1 diabetes mellitus well-controlled presenting with flank pain and fever as well as tachycardia with early sepsis syndrome. She was found IV fluids. She did have hypoglycemia which responded to D5 half-normal saline. She is eating and drinking. She feels slightly better and will continue IV hydration with treatment of her source of infection which appears to be renal system. POCUS did not reveal obstruction and patient will have formal ultrasound of her renal system. Her procalcitonin and WBCs were normal but she had a slightly elevated lactate. She is a full code. (2) Pyelonephritis: Start date: 12/26/23 Status: Acute Assessment and plan: Presumed pyelonephritis with no imaging other than focus with urine culture performed and patient initiated on ciprofloxacin. She appears to be responding. Consider CT renal protocol if appropriate. (3) Hypoglycemia: Start date: 12/26/23 Status: Acute Assessment and plan: Glucose did drop to 32 with patient symptomatic. She is improved and is taking oral hydration and food and wishes to have her D5 solution discontinued for fears of rebound hyperglycemia. This was done with patient switched to normal saline for IV fluid resuscitation with sepsis syndrome. Monitor glucometers every 4 hours with coverage as needed. (4) Type 1 diabetes mellitus: Status: Acute Assessment and plan: Hold long-acting insulin for now with hypoglycemic event and glucometer measurements every 4 hours with sensitive sliding scale using short acting insulin. As patient improves and advance his diet she will return to her usual regimen of Levemir and short acting insulin at home. She is nonexistent. She has had diabetes since she was a preteen. Qualifiers: Diabetes mellitus complication status: without complication Qualified Code(s): E10.9 - Type 1 diabetes mellitus without complications History of Present Illness History of Present Illness Chief Complaint: Bilateral flank pain with dysuria for 6 days Narrative: This is a 53-year-old female patient who has type 1 diabetes mellitus since she was a preteen presented to the ED with bilateral flank pain and dysuria for 6 days prior to admission. She began to have fever and evaluation ED did reveal a UTI with early sepsis syndrome. She also had significant hypoglycemia which does occur at home with a very tightly controlled type 1 diabetes and having hemoglobin A1c below 6. She is overweight and is very knowledgeable of her insulin treatment. She does appear slightly unkempt but was alert when seen. She was having less back discomfort and POCUS performed the ED did not reveal any dilatation of the urinary tract system with formal ultrasound ordered. She was initiated on Cipro IV because of allergies and cultures were obtained. She has no history of nephrolithiasis or previous pyelonephritis. She is a full code. Review of Systems Narrative: 13 point review of systems negative for any syncope or dizziness and negative for diarrhea or abdominal pain with patient mostly having flank pain. She is overweight and this is chronic. Otherwise unrevealing or stable. PFSH All Active Problems (Updated 12/27/23 @ 01:35 by Yong Nunez) Type 1 diabetes mellitus (Acute) Sepsis syndrome (Acute) Pyelonephritis (Acute) Hypoglycemia (Acute) Hyperlipidemia (Acute) Depression (Chronic) Onychomycosis (Acute) Plantar fascial fibromatosis of left foot (Acute) Pain in left foot (Acute) Calcaneal spur (Acute) Medical History PTSD (post-traumatic stress disorder) Pseudoseizure Grief at loss of child Dissociative identity disorder COVID Diabetes Social History Smoking/Tobacco Use Status: Never Smoking risk assessment performed?: Yes Alcohol Intake: never Drug use: Never Substance use type: does not use Housing: apartment Do you feel safe at home: Yes Do you feel safe in your relationship?: Yes Meds Allergies and Home Medications Allergies Allergy/AdvReac Type Severity Reaction Status Date / Time Penicillins Allergy Severe Anaphylaxsi Unverified 12/26/23 22:29 s erythromycin base Allergy Intermediate Skin Rash Unverified 12/26/23 22:29 Tetracyclines Allergy Intermediate incontinent Unverified 12/26/23 22:29 morphine AdvReac Intermediate Psychosis Unverified 12/26/23 22:29 bupropion HCl AdvReac Unknown Agitation Unverified 12/26/23 22:29 [From Wellbutrin] Home Medications Medication Instructions Recorded Confirmed Type cyproheptadine 4 mg tablet 4 - 8 mg PO HS PRN 07/04/13 12/26/23 History insulin detemir U-100 100 unit/mL 36 units SQ DAILY AM 07/04/13 12/26/23 History subcutaneous solution (Levemir U-100 Insulin) insulin detemir U-100 100 unit/mL 38 units subcut DAILY 2200 08/26/15 12/26/23 History (3 mL) subcutaneous pen (Levemir FlexTouch U-100 Insulin) cholecalciferol (vitamin D3) 50 50 mcg PO DAILY 10/25/22 12/26/23 History mcg (2,000 unit) capsule magnesium chloride 64 mg 64 mg PO DAILY 10/25/22 12/26/23 History (magnesium chloride) tablet,delayed release multivitamin 1 tab PO DAILY 10/25/22 12/26/23 History insulin lispro 100 unit/mL 1 sliding scale dose subcut DAILY 12/26/23 12/26/23 History subcutaneous pen (Humalog KwikPen PRN (U-100) Insulin) Exam Narrative Exam Narrative: General: Patient appears appropriate for age, moderately obese and resting comfortably in bed alert and oriented x 3. She is in moderate distress from her back flank discomfort. She is very talkative and concerned about being on D5 half-normal saline with fear of hypoglycemia which she states is often severe in the morning with rebound phenomena. She is comfortable with going to IV normal saline for hydration with her sepsis syndrome. She is also comfortable using only sliding scale short acting insulin for now. HEENT: Normocephalic, coarsened facial features, eyes with pupils equal and reactive light symmetrically, extraocular movement intact and sclera anicteric. Oropharynx with dry mucosa and poor dentition with missing and discolored teeth. Neck: Supple without JVD. Back: Normal posture with mild CVA tenderness bilaterally. Lungs: Fair aeration and clear to auscultation percussion with no focalizing rales or rhonchi. No expiratory wheeze. Breast: Exam deferred. Heart: Regular rate and rhythm with no murmurs or gallops appreciated. Abdomen: Obese contour, soft and nontender to palpation no palpable hepatosplenomegaly. Kidneys are not palpated or tender. Bowel sounds positive all quadrants. Genitalia/rectal: Exam deferred. Extremities: Without clubbing, cyanosis or grossly pitting edema with appearance of nonpitting edema over lower extremities with her obesity. Good capillary refill. Skin: Normal color, slightly moist and warm. Neuro: Cranial nerves II through XII gross intact, no focalizing motor deficits and no tremor. Psych: Flattened affect with slightly pressured speech. Depressed mood. No abnormal thought processes. Remote and recent memory grossly intact. Results Labs 12/26/23 21:02 12/26/23 21:02 Labs: Laboratory Results - last 24 hr 12/26/23 12/26/23 12/26/23 20:49 21:02 23:27 WBC 9.57 RBC 5.15 Hgb 14.8 Hct 44.8 MCV 87 MCH 28.7 MCHC 33.0 RDW 13.6 Plt Count 157 MPV 9.5 Immature Gran % 0.4 Neutrophils % 89.3 Lymphocytes % 7.2 Monocytes % 2.3 Eosinophils % 0.4 Basophils % 0.4 Nucleated RBC % 0.0 Absolute Neutrophils 8.54 H Absolute Lymphocytes 0.69 L Absolute Monocytes 0.22 Absolute Eosinophils 0.04 Absolute Basophils 0.04 PT 9.3 INR 0.9 APTT 24.8 VBG pH 7.43 H VBG pCO2 45 VBG pO2 29 VBG HCO3 30 H VBG Total CO2 26 VBG O2 Saturation 61 VBG Base Excess 5 H VBG Lactate 1.5 H 2.0 H Sodium 145 Potassium 3.7 Chloride 105 Carbon Dioxide 29.5 Anion Gap 10.5 BUN 17 Creatinine 1.0 Est GFR (CKD-EPI 2020) 67.36 Glucose 32 L* Calcium 8.9 Total Bilirubin 0.4 AST 16 ALT 28 Alkaline Phosphatase 110 Total Protein 7.6 Albumin 3.8 Procalcitonin 0.2 Urine Color Yellow Urine Clarity Clear Urine pH 6.0 Ur Specific [place] 1.010 Urine Protein Negative Urine Ketones Negative Urine Blood Small H Urine Nitrite Negative Urine Bilirubin Negative Urine Urobilinogen 0.2 Ur Leukocyte Esterase Trace H Urine RBC 3-5 H Urine WBC 5-10 Ur Epithelial Cells Few Urine Crystals Negative Urine Bacteria Rare Urine Mucus Negative Ur Culture Indicated? Yes Urine Glucose Negative Last Vital Signs Temp 38.5 C H 12/26/23 21:41 Pulse 84 12/27/23 00:11 Resp 20 12/27/23 00:11 BP 132/58 L 12/27/23 00:11 Pulse Ox 94 12/27/23 00:11 Time Spent Time spent with Patient: >75 minutes Time was spent: preparing to see the patient(eg.review tests), obtaining and/or reviewing separately otained hiistory, ordering medications,tests, procedures, referring, communicating with other health health care social worker, indepentently interpreting results and care coordination
[2023-12-27] MEDS: Normal Saline 250 ML 125 ML IV (02:55)
[2023-12-27] MEDS: Heparin 5,000 UNITS/ML VIAL 5000 UNITS SC (05:46)
[2023-12-27] MEDS: Acetaminophen 325 MG TAB PO (05:46)
[2023-12-27 06:43] LABS: HCT 40.3 % (36.0-46.0); HGB 13.4 g/dL (11.2-15.7); MCH 29.2 pg (27.0-33.0); MCHC 33.3 % (32.0-36.0); MCV 88 fL (80-95); MPV 9.8 fL (8.0-11.0); Platelet Count 141 10^3/uL (130-400); RBC 4.59 10^6/uL (3.93-5.22); RDW 13.8 % (11.7-14.6); RDW-SD 44.2 fL; WBC 7.69 10^3/uL (4.4-10.8)
[2023-12-27 07:06] LABS: ALT 28 U/L (14-59); AST 21 U/L (15-37); Albumin 2.9 g/dL (3.4-5.0); Alkaline Phosphatase 88 U/L (46-116); BUN 14 mg/dL (7-18); Bilirubin, Total 0.6 mg/dL (0.2-1.0); CREATININE 0.8 mg/dL (0.55-1.02); Calcium 8.3 mg/dL (8.5-10.1); Chloride 109 mmol/L (98-107); Estimated GFR 88.05 (mL/min/1.73m2); Glucose 132 mg/dL (74-106); Magnesium 2.1 mg/dL (1.8-2.4); Potassium 4.1 mmol/L (3.5-5.1); Sodium 145 mmol/L (136-145); Total Protein 6.1 g/dL (6.4-8.2)
--- NOTE | 2023-12-27 08:00 | DI.US_ITS ---
Exam(s) US RENAL EXAM: US RENAL CLINICAL HISTORY: Sepsis with UTI TECHNIQUE: Ultrasound of both kidneys performed using standard protocol. COMPARISON: US POCUS EXAM from 12/26/2023 FINDINGS: RIGHT KIDNEY: Measures 12.3 cm in length. No cysts evident. Normal cortical thickness and corticomedullary differen tiation .No solid masses No intrarenal calculi nor hydronephrosis. LEFT KIDNEY: Measures 11.8 cm in length. No cysts evident. Normal cortical thickness and corticomedullary differe ntiaion. No solids masses. No intrarenal calculi nor hydonephrosis. URINARY BLADDER: Prevoid volume is 220 cc Postvoid volume is: Patient was apparently not able to void. No evidence of bladder mass nor diverticuli. Ureterovesical jets: Both not visualized. IMPRESSION: 1. No significant ultrasound findings in the kidneys. 2. Prevoid volume of the urinary bladder was 220 cc. Postvoid volume was not able to be obtained as the patient was apparently not able to void. No obvious mass in the urinary bladder. DATA REPOSITORY:
[2023-12-27] MEDS: Cholecalciferol (Vitamin D3) 1,000 UNIT TAB 2000 UNITS PO (08:04)
[2023-12-27] MEDS: Multivitamin TAB 1 TAB PO (08:04)
[2023-12-27] MEDS: Insulin Aspart 300 UNITS/3 ML PEN SC (08:21)
--- NOTE | 2023-12-27 08:35 | NUR.NOTE ---
Pt is taking her own blood sugar in her room and using her own insulin to treat per her own protocol. bus driver supervisor had been unable to confiscate her insulin. She uses a for blood sugar #s as well as carb counts, reported to Hospitalist and Senior Chemical Engineer. BLood sugar at 06 was 121, she retook it after breakfast: 141 at 0745, which she took 6 units regular Humalog. Staff retook BS at 08: 170, which we gave 1 unit per flexpen for, pt wanted 6 units. Pt now at [facility] for renal US. Nursing Note:
[2023-12-27] MEDS: CIPROFLOXACIN 400 MG/200 ML BAG 200 MG IVPB (09:55)
--- NOTE | 2023-12-27 10:11 | NUR.NOTE ---
Pt asking for pain control for bilateral flank pain at 6/10, decclined tylenol, asking for toradol, requested from hospitalist. Will monitor. Nursing Note:
--- NOTE | 2023-12-27 10:47 | PDOC.CMIN ---
Date of service: 12/27/23 Time of Service: 10:50 Care Management Initial Assmt Initial Assessment REASON FOR HOSPITALIZATION:: Sepsis, UTI, IDDM with hypoglycemia PREVIOUS FUNCTIONAL STATUS/SOCIAL/FAMILY SUPPORTS:: Renetta lives in [place], [facility]. She has a daughter, Yaima, who lives locally, and a son, Benjie, who lives out of state. 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 She is independent at baseline. CURRENT FUNCTIONAL STATUS:: Renetta was sitting up on the edge of her bed when CM met with her. She stated that she is being discharged, and she is very happy about that. Her daughter was in the room, and stated that she will provide transportation. Renetta expressed frustration about the management of her diabetes medication while inpatient, as she stated that she was not willing to give up her own medications. CM asked if she would like to talk with someone from risk management, and she declined, stating that all of her care was good, with the exception of the diabetes management. CM provided support, and will follow up post discharge. CM will continue to follow. ADVANCE DIRECTIVES:: Not on file at [facility]. Has patient been provided with info about the portal/API?: Yes Did the patient sign up for the portal?: No CODE STATUS:: Full Code INSURANCE COVERAGE / FINANCIAL ISSUES:: MCR CURRENT HOME/COMMUNITY SERVICES/EQUIPMENT:: Outpatient PT PRIMARY CARE PHYSICIAN:: Kwesi Ocasio POTENTIAL DISCHARGE NEEDS:: Evaluation for further needs, follow up appointments. PATIENT/FAMILY EDUCATION NEEDS:: Review discharge instructions and limitations, discussion of self care needs including ask me three. ANTICIPATED BARRIERS TO DISCHARGE:: None identified. TRANSPORTATION:: Via private vehicle. PLAN:: Anticipate Renetta will return home once medically cleared. She will be driven home via private vehicle. She will follow up with her PCP and discharge plan of care. CM will continue to follow. PFSH All Active Problems (Updated 12/27/23 @ 01:35 by Yong Nunez) Type 1 diabetes mellitus (Acute) Sepsis syndrome (Acute) Pyelonephritis (Acute) Hypoglycemia (Acute) Hyperlipidemia (Acute) Depression (Chronic) Onychomycosis (Acute) Plantar fascial fibromatosis of left foot (Acute) Pain in left foot (Acute) Calcaneal spur (Acute) Medical History PTSD (post-traumatic stress disorder) Pseudoseizure Grief at loss of child Dissociative identity disorder COVID Diabetes Social History Smoking/Tobacco Use Status: Never Smoking risk assessment performed?: Yes Alcohol Intake: never Drug use: Never Substance use type: does not use Housing: apartment Do you feel safe at home: Yes Do you feel safe in your relationship?: Yes SDOH(Care Management) Screening Will the Patient Participate in the Screening?: Declined to provide
--- NOTE | 2023-12-27 12:06 | DSE_ITS ---
Date of service: 12/27/23 Time of Service: 12:06 DS: Diagnosis Discharge Diagnosis (1) Sepsis syndrome: Status: Acute (2) Pyelonephritis: Status: Acute (3) Hypoglycemia: Status: Acute (4) Type 1 diabetes mellitus: Status: Acute Discharge Plan Disposition Patient Disposition: Home Condition: Stable Discharge Details Reason For Visit: Sepsis, UTI, IDDM with hypoglycemia Admit Date/Time: 12/26/23 23:51 Admit Provider: Yong Nunez Attending Provider: Yong Nunez Primary Care Provider: Kwesi Ocasio Hospital Course Hospital Course: This is a 53-year-old female patient history of type 1 diabetes mellitus, depression, who presented to the emergency department for evaluation of flank pain and fever. Her workup in the emergency department did show urinary tract infection and due to allergy profile placed on ciprofloxacin. Also noted was hypoglycemia for which she was started on IV fluids with dextrose. She was referred to observation under the hospitalist services to monitor her blood sugar as she remained persistently hypo glycemic. Overnight her blood sugars did improve but in the morning she was resistant to lower doses of insulin and her blood sugar dropped again to 53. she was asymptomatic and insisted on managing her own blood sugars. As she was admitted for blood glucose monitoring and does not want to follow our recommendations I did discuss discharge to home as she does not need to be hospitalized for her pyelonephritis. This was discussed with the patient and her daughter who are both in agreement with her being discharged. Plan is to discharge home on ciprofloxacin pending her final culture report. She was advised to return sooner for new or worsening symptoms she will continue monitoring and managing her blood glucose as she typically does. And will follow-up outpatient with primary care provider discharge is discussed with Dr. Mclaughlin Home Meds and New Rx's Prescriptions: New ciprofloxacin HCl 500 mg tablet 500 mg PO Q12H Qty: 20 0RF Continued magnesium chloride 64 mg tablet,delayed release (DR/EC) 64 mg PO DAILY Hold Instructions: Pt Stopped/Never Started multivitamin Tablet 1 tab PO DAILY cholecalciferol (vitamin D3) 50 mcg (2,000 unit) capsule 50 mcg PO DAILY Levemir U-100 Insulin 100 UNIT/ML solution 36 units SQ DAILY AM cyproheptadine 4 MG tablet 4 - 8 mg PO HS PRN Patient Comments: 04/18/18 ER- Pt states she has not taken in a long time Levemir FlexTouch U100 Insulin 100 UNIT/ML insulin pen 38 units Sub-Q DAILY insulin lispro [Humalog KwikPen Insulin] 100 unit/mL insulin pen 1 sliding scale dose subcut DAILY PRN Discharge Instructions Instructions: Urinary Tract Infection in Women (DC) Additional Instructions: Take antibiotics as prescribed even if you feel better Drink at least 6 to 8 glasses of water daily to stay well-hydrated You can use ibuprofen and/or acetaminophen as directed for pain if needed You can try a warm pad if helpful Stand Alone Forms: Nursing Discharge Form Referrals: Kwesi Ocasio [Primary Care Provider] - (Please call and make a hospital follow up within 10-14 days. ) Activity:: Activity as Tolerated Equipment/Supplies:: No Equipment Needed Diet:: As Tolerated Discharge Orders Discharge Orders: Discharge Order (Routine); Ordered 12/27/23 Ordered By: Anna Ryan Discharge Data Discharge Date/Time-TO BE ENTERED AT DEPARTURE: 12/27/23 13:12 DS: Summary Time Spent with Patient providing and/or coordinating discharge services: Less than 30 minutes Status at Discharge Functional status at discharge: independent ambulation Overall status at discharge: patient is progressing back to baseline Mental Status: mental status grossly normal Speech and Movement: speech and movement normal Mood: angry Affect: labile affect Quality:SDOH Health Related Social Needs: No Data to Display Exam Narrative Exam Narrative: Obese female chronically ill appearing older than stated age unkempt in no acute distress neurologic she is awake alert oriented no focal deficits appears to have capacity. Eyes are noninjected nonicteric oral mucosa is moist neck is supple with full range of motion no JVD respirations are even and unlabored skin is pink and warm dry well-perfused moves all her extremities equally is reporting left flank pain abdomen is benign skin with no rashes or lesions psychiatric angry mood and affect Psych Mental Status: mental status grossly normal Speech and Movement: speech and movement normal Mood: angry Affect: labile affect DS: Data Vitals/I&O Vitals and I&O: Vital Signs Temperature 36.3 C L 12/27/23 10:37 Temperature Source Tympanic 12/27/23 10:37 Pulse 74 12/27/23 10:37 Pulse Rhythm Regular 12/27/23 09:12 Pulse 81 12/27/23 00:31 Respiratory Rate 16 12/27/23 10:37 Respiratory Effort Normal 12/27/23 09:12 Respiratory Depth Normal 12/27/23 09:12 Respiratory Pattern Normal 12/27/23 09:12 Blood Pressure 134/60 12/27/23 10:37 Blood Pressure Mean 69 12/27/23 00:30 Blood Pressure Position Sitting 12/26/23 21:41 Pulse Oximetry 97 12/27/23 10:37 Oxygen Delivery Method Room Air 12/27/23 10:37 Oxygen Flow Rate 0 12/27/23 10:37 Pain Level 4 12/27/23 05:46 Comment Has taken ibuprofen and APAP approx 2 hours ago. 12/26/23 20:40 Intake & Output 12/26/23 12/27/23 12/27/23 23:59 11:59 23:59 Intake Total 1200 / 1200 859.167 / 859.167 Balance 1200 / 1200 859.167 / 859.167 Weight 122.924 kg 125.9 kg Intake: IV 1200 / 1200 279.167 / 279.167 Oral 580 / 580 Other: Urine Color Yellow Comment per pt voided x1 Voiding Methods Toilet Data Completed and Pending Labs on day of discharge: Labs from last 24 hours 12/27/23 12/26/23 12/26/23 05:57 23:27 21:02 WBC 7.69 9.57 RBC 4.59 5.15 Hgb 13.4 14.8 Hct 40.3 44.8 MCV 88 87 MCH 29.2 28.7 MCHC 33.3 33.0 RDW 13.8 13.6 Plt Count 141 157 MPV 9.8 9.5 Immature Gran % 0.4 Neutrophils % 89.3 Lymphocytes % 7.2 Monocytes % 2.3 Eosinophils % 0.4 Basophils % 0.4 Nucleated RBC % 0.0 Absolute Neutrophils 8.54 H Absolute Lymphocytes 0.69 L Absolute Monocytes 0.22 Absolute Eosinophils 0.04 Absolute Basophils 0.04 PT 9.3 INR 0.9 APTT 24.8 VBG pH 7.43 H VBG pCO2 45 VBG pO2 29 VBG HCO3 30 H VBG Total CO2 26 VBG O2 Saturation 61 VBG Base Excess 5 H VBG Lactate 2.0 H 1.5 H Sodium 145 145 Potassium 4.1 3.7 Chloride 109 H 105 Carbon Dioxide 28.0 29.5 Anion Gap 8.0 10.5 BUN 14 17 Creatinine 0.8 1.0 Est GFR (CKD-EPI 2020) 88.05 67.36 Glucose 132 H 32 L* Calcium 8.3 L 8.9 Magnesium 2.1 Total Bilirubin 0.6 0.4 AST 21 16 ALT 28 28 Alkaline Phosphatase 88 110 Total Protein 6.1 L 7.6 Albumin 2.9 L 3.8 Procalcitonin 0.2 Urine Color Urine Clarity Urine pH Ur Specific [place] Urine Protein Urine Ketones Urine Blood Urine Nitrite Urine Bilirubin Urine Urobilinogen Ur Leukocyte Esterase Urine RBC Urine WBC Ur Epithelial Cells Urine Crystals Urine Bacteria Urine Mucus Ur Culture Indicated? Urine Glucose 12/26/23 20:49 WBC RBC Hgb Hct MCV MCH MCHC RDW Plt Count MPV Immature Gran % Neutrophils % Lymphocytes % Monocytes % Eosinophils % Basophils % Nucleated RBC % Absolute Neutrophils Absolute Lymphocytes Absolute Monocytes Absolute Eosinophils Absolute Basophils PT INR APTT VBG pH VBG pCO2 VBG pO2 VBG HCO3 VBG Total CO2 VBG O2 Saturation VBG Base Excess VBG Lactate Sodium Potassium Chloride Carbon Dioxide Anion Gap BUN Creatinine Est GFR (CKD-EPI 2020) Glucose Calcium Magnesium Total Bilirubin AST ALT Alkaline Phosphatase Total Protein Albumin Procalcitonin Urine Color Yellow Urine Clarity Clear Urine pH 6.0 Ur Specific [place] 1.010 Urine Protein Negative Urine Ketones Negative Urine Blood Small H Urine Nitrite Negative Urine Bilirubin Negative Urine Urobilinogen 0.2 Ur Leukocyte Esterase Trace H Urine RBC 3-5 H Urine WBC 5-10 Ur Epithelial Cells Few Urine Crystals Negative Urine Bacteria Rare Urine Mucus Negative Ur Culture Indicated? Yes Urine Glucose Negative 12/26/23 21:20 Blood Blood Culture - Pending 12/26/23 20:49 Urine - Reflex from Ua Urine Culture - Pending 12/26/23 21:02 Blood Blood Culture - Pending Preliminary micro results at discharge 12/26/23 21:20 Blood Culture - Pending Blood 12/26/23 20:49 Urine Culture - Pending Urine - Reflex from Ua 12/26/23 21:02 Blood Culture - Pending Blood [facility] All Active Problems (Updated 12/27/23 @ 01:35 by Yong Nunez) Type 1 diabetes mellitus (Acute) Sepsis syndrome (Acute) Pyelonephritis (Acute) Hypoglycemia (Acute) Hyperlipidemia (Acute) Depression (Chronic) Onychomycosis (Acute) Plantar fascial fibromatosis of left foot (Acute) Pain in left foot (Acute) Calcaneal spur (Acute) Medical History PTSD (post-traumatic stress disorder) Pseudoseizure Grief at loss of child Dissociative identity disorder COVID Diabetes Social History Smoking/Tobacco Use Status: Never Smoking risk assessment performed?: Yes Alcohol Intake: never Drug use: Never Substance use type: does not use Housing: apartment Do you feel safe at home: Yes Do you feel safe in your relationship?: Yes Time Spent with Patient Time Spent with Patient: <45 minutes Time was spent: preparing to see the patient(eg.review tests), obtaining and/or reviewing separately otained hiistory, ordering medications,tests, procedures, indepentently interpreting results and counseling the patient
[2023-12-27] MEDS: Ketorolac 15 MG/ML VIAL IVP (12:10)
--- NOTE | 2023-12-27 13:22 | NUR.NOTE ---
Hospitalist discussed with pt that when her urine and blood cultures come back they will make sure that she is on the correct ABX. If not, they will call her to change the treatment. Pt states she is sure she will feel better once she gets home and can resume her usual insulin regimen. Reminded pt that she was hypoglycemic when she was admitted. Pt states that was because of pain. Attempted to discuss that the normal reaction to pain would be an elevation of blood sugars, but pt became hostile. Her daughter was present and intervened, which seemed to help. She was discharged with her daughter to drive her home in a private vehicle. Nursing Note:
--- NOTE | 2023-12-27 17:07 | PDOC.CMDIS ---
Date of service: 12/27/23 Time of Service: 17:07 LACE Index Scoring Tool Questions: Length of Stay (in days): 1 Was the patient admitted via the E.D.?: Yes Comorbidities: Diabetes w/o Complication E.D. Visits: 0 Answers: Total Score: 5 Risk of Readmission: Low Risk Care Management Discharge Plan Reason for Hospitalization: Sepsis, UTI, IDDM with hypoglycemia Discharge Plan: Renetta returned home with no new services today. Her daughter drove her home via private vehicle. She will follow up with her PCP and discharge plan of care. She is happy to be going home. Patient/Family Education Needs: Review discharge instructions and limitations, discussion of self care needs including ask me three. SDLA Health Related Social Needs: No Data to Display
== END 2023-12-27 13:12 | disposition home or self-care (01) | DRG 872 ==
LOC: ER 12-27 00:09 → MS 12-27 01:04
PROVIDERS: Admitting Provider Family Medicine; Emergency Provider Student in an Organized Health Care Education/Training Program; PCP Physician Assistant; Visit Provider Family Medicine
DX: A41.9 Sepsis, unspecified organism (principal); N10 Acute pyelonephritis; E10.649 Type 1 diabetes mellitus with hypoglycemia without coma; F32.A Depression, unspecified; E78.5 Hyperlipidemia, unspecified; F43.10 Post-traumatic stress disorder, unspecified; B35.1 Tinea unguium; Z68.37 Body mass index [BMI] 37.0-37.9, adult; E66.3 Overweight
CPT/HCPCS: 00123; 36415; 36416; 76770; 76775; 80053; 82805; 82962; 84145; 85027; 87040; 87077; 96361; 96365; 96375; 99285; 81003; 81015; 83605; 83735; 85025; 85610; 85730; 87086; 87186; 99223; 99238; J0744; J1644; J1815; J1885

== ENCOUNTER 2024-10-22 16:40 | Outpatient (CLI) | payer OTHER, SELFPAY ==
--- NOTE | 2024-10-22 12:40 | DI.RAD_ITS ---
Exam(s) XR CHEST 2V PA LATERAL EXAM: XR CHEST 2V PA LATERAL CLINICAL HISTORY: R05.9 Cough TECHNIQUE: 2D digital imaging was performed of the chest. Two images were obtained. PA and lateral views were obtained. COMPARISON: CR,XR XR PORTABLE CHEST AP from 02/06/2022 FINDINGS: MEDIASTINUM: Normal. HEART: Normal. PULMONARY VASCULATURE: Normal. LUNGS: Clear. PLEURAL SPACE: No pleural effusion or pneumothorax. BONE:Within normal limits for the patient's age. OTHER FINDINGS:Normal. IMPRESSION: No acute pulmonary findings. DATA REPOSITORY: RADIATION DOSE DELIVERED:
== END 2024-10-22 17:00 ==
LOC: DI 16:41
PROVIDERS: PCP Physician Assistant; Visit Provider Nurse Practitioner Family
DX: R05.9 Cough, unspecified (principal)
CPT/HCPCS: 71046

== ENCOUNTER 2024-11-15 06:53 | Day surgery (SDC) | payer OTHER, SELFPAY ==
[2024-11-15 07:40] VITALS: BP 145/76; PULSE 82; RESP 16; TEMP 36.4; O2SAT 99
[2024-11-15] MEDS: Lactated Ringers 1,000 ML 80 ML IV (07:55)
--- NOTE | 2024-11-15 08:41 | ANES.PREOP_ITS ---
General Info Date of Service Date Performed: 11/15/24 Height: 6 ft Weight: 132.4 kg Body Mass Index (BMI): 39.6 Surgical Procedure: Operation Date: 11/15/24 08:20 Proposed Procedure Side Surgeon p Colonoscopy Lorenzo Klein MD Actual Procedure Side Surgeon p Colonoscopy Not Applicable Lorenzo Klein MD Pre-Op Diagnosis Post-Op Diagnosis screening colonoscopy Meds Allergies and Home Medications Allergies Allergy/AdvReac Type Severity Reaction Status Date / Time Penicillins Allergy Severe Anaphylaxsi Verified 11/15/24 07:30 s erythromycin base Allergy Intermediate Skin Rash Verified 11/15/24 07:30 Tetracyclines Allergy Intermediate incontinent Verified 11/15/24 07:30 morphine AdvReac Intermediate Psychosis Verified 11/15/24 07:30 bupropion HCl (From AdvReac Unknown Agitation Verified 11/15/24 07:30 Wellbutrin) Home Medication ?Medication ?Instructions ?Recorded cyproheptadine 4 mg tablet 4 - 8 mg PO HS PRN 07/04/13 cholecalciferol (vitamin D3) 50 50 mcg PO DAILY 10/25/22 mcg (2,000 unit) capsule magnesium chloride 64 mg 64 mg PO DAILY 10/25/22 (magnesium chloride) tablet,delayed release multivitamin 1 tab PO DAILY 10/25/22 insulin lispro 100 unit/mL 1 sliding scale dose subcut DAILY 12/26/23 subcutaneous pen (Humalog KwikPen PRN (U-100) Insulin) dihydroberberine 200 mg capsule 200 mg PO DAILY 10/17/24 (Berberine ES-5) insulin degludec 100 unit/mL (3 14 unit subcut QHS 10/17/24 mL) subcutaneous pen (Tresiba FlexTouch U-100 insulin) semaglutide 0.25 mg or 0.5 mg (2 0.25 mg subcut QWEEK 10/17/24 mg/3 mL) subcutaneous pen injector (Ozempic) bisacodyl 5 mg tablet,delayed 5 mg PO ONCE #4 tabs 11/01/24 release (Dulcolax (bisacodyl)) polyethylene glycol 3350 17 17 g PO ONCE #238 grams 11/01/24 gram/dose oral powder ibuprofen 600 mg tablet (IBU) 600 mg PO ONCE 11/15/24 Current Visit Medications: Current Medications Generic Name Dose Route Start Last Admin Trade Name Freq PRN Reason Stop Dose Admin Ringer's Solution 1,000 mls @ 80 mls/hr 11/15/24 06:00 11/15/24 07:55 IV 11/15/24 23:59 80 mls/hr INFUSION BANG Administration IV Miscellaneous Supplies 1 each 11/15/24 06:00 Iv Access IV 11/15/24 23:59 DIRECTED BANG Sodium Chloride 0 ml 11/15/24 06:00 Normal Saline Flush 10 Ml Syr IV 11/15/24 23:59 PRN PRN Sodium Chloride 0 ml 11/15/24 06:00 Normal Saline 10 Ml Vial IJ 11/15/24 23:59 DIRECTED PRN Sterile Water 0 ml 11/15/24 06:00 Water,Injection,Sterile 10 Ml Vial IJ 11/15/24 23:59 DIRECTED PRN PFSH Active Problems Active Problems: Problem Status Onset Code Type 1 diabetes mellitus Acute E10.9 Sepsis syndrome Acute Pyelonephritis Acute N12 Hypoglycemia Acute E16.2 Hyperlipidemia Acute E78.5 Depression Chronic F32.A Onychomycosis Acute B35.1 Plantar fascial fibromatosis of left foot Acute M72.2 Pain in left foot Acute M79.672 Calcaneal spur Acute M77.30 Medical History Medical History PTSD (post-traumatic stress disorder) Per pt. do not touch legs and feet when waking up. Elbows and shoulders are OK to touch. 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 Pt. states she has not had one since 2013 Grief at loss of child Dissociative identity disorder COVID Diabetes Surgical History Surgical History History of carpal tunnel release of both wrists Hx of abdominal surgery R side Hx of section x 3 Hx of foot surgery left foot Hx of hysterectomy Tobacco Smoking/Tobacco Use Status: Never Alcohol Alcohol Intake: never Substance Use Substance use: Never Substance use type: does not use Details: alcohol: t-21 Vital Signs and Lab Results Vital Signs Most Recent Vital Signs in EMR: Most Recent Vital Signs Temp Pulse Resp BP Pulse Ox 36.4 C L 82 16 145/76 H 99 11/15/24 07:40 11/15/24 07:40 11/15/24 07:40 11/15/24 07:40 11/15/24 07:40 Point of Care Results Point of Care Results: Finger Stick Blood Glucose 131 11/15/24 08:40 Lab Results Blood Type / Crossmatch: 2 No Data to Display Complete Blood Count: 2 No Data to Display Complete Metabolic Panel: 2 No Data to Display Liver Function Panel: 2 No Data to Display Coagulation Panel: 2 No Data to Display Cardiac Panel: 2 No Data to Display Arterial Blood Gas: 2 No Data to Display Venous Blood Gas: 2 No Data to Display Pancreas Panel: 2 No Data to Display Thyroid Panel: 2 No Data to Display Infectious Disease: 2 No Data to Display Blood Cultures: 2 No Data to Display Toxicology Panel: 2 No Data to Display Panel: 2 No Data to Display Imaging and Studies Imaging and Studies Study information below may be from another EMR and interpreted by another provider. Please see original notes in EMR for more complete details. EKG Summary: EKG PATIENT NAME: Saurabh Bullard UNIT #: [id number] ORDERING PROVIDER: Socorro German PRIMARY CARE PROVIDER: JOHN SEBASTIAN NP DATE/TIME OF SERVICE: 02/06/222004 : 1970 PERFORMING LOCATION: ER APPROVED REPORT Exam: Resting ECG Reason for Exam: CP, SOB Patient Location: E HR:107 bpm ECG Measurements Heart Rate 107 [place] 156 P 49 QRSd 93 QRS 97 QT 331 T14 QTc 442 Conclusion Sinus tachycardia...rate> 99 Probable left atrial enlargement...P >50mS, <-0.10mV V1 Low voltage, precordial leads...precordial leads <1.0mV - <Electronically signed by VALENTE PASTOR MD in OV> E-Sign Date: 02/06/22 E-Sign Time: 2018 ADDENDUM APPROVED REPORT Exam: Resting ECG Reason for Exam: CP, SOB Patient Location: E HR:107 bpm ECG Measurements Heart Rate 107 [place] [place] 156 P 49 QRSd 93 QRS 97 QT 331 T14 QTc 442 Conclusion Sinus tachycardia...rate> 99 Probable left atrial enlargement...P >50mS, <-0.10mV V1 Low voltage, precordial leads...precordial leads <1.0mV I have reviewed and I agree with the emergency room physician's ECG interpretation. Electronically signed by: <Electronically signed by Anni Webster M.D. in [place]> 02/08/22 0830 Cosigned by: Echocardiogram Summary: Patient Name: SAURABH SUE Unit #: [id number] Loc: Ordering Provider: STEPHANIE MORGAN [employer] OFFICER Status: [facility] Primary Care Provider: STEPHANIE MORGAN NP Date of Exam: 01/09/15 Sex: F : 1970 Age: 44 Exam(s) [id number] EC:Echocardiogram-Complete *[facility]* *[facility]* [address] [place] [address] Date of study: 01/09/2015 *STUDY CONCLUSIONS* Impressions: Normal study. Summary: 1. Left ventricle: The cavity size was normal. Wall thickness was normal. Systolic function was normal. The estimated ejection fraction was 60-65%. Wall motion was normal; there were no regional wall motion abnormalities. 2. Aortic valve: Trileaflet; normal thickness leaflets. 3. Mitral valve: Structurally normal valve. 4. Left atrium: The atrium was normal in size. 5. Right ventricle: The cavity size was normal. Wall thickness was normal. Systolic function was normal. 6. Tricuspid valve: Structurally normal valve. 7. Pulmonary arteries: Pulmonary systolic pressure was within the normal range. *PATIENT PRESENTATION* Height: 180.3cm (71in ) S/D Pressure: 144 / 72 Weight: 119.8kg (263.5lb ) BSA: 2.49m^2 Test start time: 02:50 PM. Test stop time: 03:47 PM. 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 Pertinent images and digital data are archived for permanent storage and are available for subsequent review. Study status: Routine. Transthoracic echocardiography. M-mode, complete 2D, complete spectral Doppler, and color Doppler. A Transthoracic Echocardiogram was performed. Scanning was performed from the parasternal, apical, subcostal, and suprasternal notch acoustic windows. Study completion: The patient tolerated the procedure well. *INDICATIONS AND HISTORY* Indications: Murmur, established by procedure. *CARDIAC ANATOMY* Left ventricle: The cavity size was normal. Wall thickness was normal. Systolic function was normal. The estimated ejection fraction was 60-65%. Wall motion was normal; there were no regional wall motion abnormalities. Aortic valve: Trileaflet; normal thickness leaflets. Mobility was not restricted. Doppler: Transvalvular velocity was within the normal range. There was no stenosis. No regurgitation. VTI ratio of LVOT to aortic valve: 1.02. Indexed valve area: 1.2cm^2/m^2 (VTI). Peak velocity ratio of LVOT to aortic valve: 0.98. Indexed valve area: 1.2cm^2/m^2 (Vmax). Mean gradient: 4mm Hg (S). Peak gradient: 7.3mm Hg (S). Aorta: Aortic root: The aortic root was normal in size. Ascending aorta: The ascending aorta was normal in size. Mitral valve: Structurally normal valve. Mobility was not restricted. Doppler: Transvalvular velocity was within the normal range. There was no evidence for stenosis. Trivial regurgitation. Indexed valve area by pressure half-time: 0.9cm^2/m^2. Peak gradient: 4.2mm Hg (D). Left atrium: Well visualized. The atrium was normal in size. Right ventricle: The cavity size was normal. Wall thickness was normal. Systolic function was normal. Pulmonic valve: Doppler: Transvalvular velocity was within the normal range. There was no evidence for stenosis. No regurgitation. Tricuspid valve: Structurally normal valve. Doppler: Transvalvular velocity was within the normal range. There was no evidence for stenosis. No regurgitation. Pulmonary artery: Pulmonary systolic pressure was within the normal range. Right atrium: Not well visualized. The atrium was normal in size. Pericardium: There was no pericardial effusion. Systemic veins: Inferior vena cava: Well visualized. The vessel was normal in size; the respirophasic diameter changes were in the normal range (greater than or equal to 50%). Baseline ECG: Normal sinus rhythm. *MEASUREMENT TABLES* 2D measurements Normal Left ventricle Volume, ED, MOD, 2-plane 73.2 ml 55-101 Ejection fraction, MOD, 2-plane 57.24 % -------- Volume index, ED, MOD, 2-plane 29 ml/m ^2 -------- Aorta Root diameter, ED 30.9 mm -------- Left atrium Area ES, A4C 18.9 cm2 8.8-23.4 Volume index, S 21.6 ml/m ^2 -------- Right atrium Area, ES 14.9 cm2 -------- M-mode measurements Normal Left ventricle Volume, ED, Teichholz 127.2 ml -------- Volume, ES, Teichholz 25.3 ml -------- Ejection fraction, Teichholz 80.11 % 64-83 Volume index, ED, Teichholz 51 ml/m ^2 -------- Volume index, ES, Teichholz 10 ml/m ^2 -------- Aorta Root diameter, ED 29.5 mm 20-37 Doppler measurements Normal Main pulmonary artery Pressure, S 14 mm Hg <=30 Left ventricle IVRT 67 ms 60-100 Ea, medial annulus, tissue Doppler 15 cm/s -------- E/Ea, medial annulus, tissue Doppler 6.87 -------- LVOT Peak velocity, S 132 cm/s -------- VTI, S 26.9 cm -------- Peak gradient, S 7 mm Hg -------- Mean gradient, S 4 mm Hg -------- Aortic valve Peak velocity, S 135 cm/s -------- Mean velocity, S 93 cm/s -------- VTI, S 26.4 cm -------- Mean gradient, S 4 mm Hg -------- Peak gradient, S 7.3 mm Hg -------- VTI ratio, LVOT/AV 1.02 -------- Valve area index, VTI 1.2 cm2/m^2 -------- Peak velocity ratio, LVOT/AV 0.98 -------- Valve area index, Vmax 1.2 cm2/m^2 -------- Mitral valve Peak E-wave velocity 103 cm/s -------- Peak A-wave velocity 107 cm/s -------- Deceleration slope 300 cm/s ^2 -------- Deceleration time *331 ms 150-230 Pressure half-time 100 ms -------- Peak gradient, D 4.2 mm Hg -------- Peak E/A ratio 0.96 -------- Valve area index, pressure half-time 0.9 cm2/m^2 -------- Tricuspid valve Regurgitant peak velocity 151 cm/s -------- Peak RV-RA gradient, S 9.1 mm Hg -------- Maximal regurgitant velocity 151 cm/s -------- Systemic veins Estimated CVP 10 mm Hg -------- Right ventricle RV pressure, S 19 mm Hg <30 Pulmonic valve Peak velocity, S 111 cm/s -------- Mean velocity, S Anesthesia Assessment and Plan Anesthesia History Personal History: Other Family History: No Family History of Anesthesia Complications Exercise Tolerance Exercise Tolerance: Metabolic Equivalents>4 Pertinent Negatives Pertinent Negatives: No Symptoms of GERD, No Major Cardiovascular Symptoms or Complaints, No Major Pulmonary Symptoms or Complaints and No History of CVA/TIA Cardiac & Pulmonary Exam Cardiac Exam: Normal S1/S2 Heart Sounds Pulmonary Exam: Clear Bilateral Breath Sounds Implantable Cardiac Device Does patient have a Pacemaker or an ICD?: No Airway Exam Known Difficult Airway: No Mallampati Class: 1 Mouth Opening: Normal (> 3cm) Thyromental Distance: Greater than 3 cm Neck Range of Motion: Full ROM Neck Circumference: Normal Teeth Condition: Generalized Poor Dentition, Loose or Chipped and Dental Caries Tooth Numberin 1. Missing 2. Missing 3. Missing 4. Missing ASA Classification ASA Score: ASA 3 Emergency Case?: No NPO Status NPO Status: NPO Clears >2 hours, Solids >8 hours Status Status: Not Relevant due to Medical History Anesthesia Plan Resuscitation Status: Full Code Anesthesia Technique: General Anesthesia Airway Planned: Natural Airway Monitors Used: Standard Monitors
[2024-11-15 08:43] VITALS: BMI 39.6
[2024-11-15 09:21] VITALS: BP 117/63; PULSE 80; RESP 16; TEMP 36; O2SAT 96
--- NOTE | 2024-11-15 09:34 | COLE_ITS ---
Date of service: 11/15/24 Time of Service: 09:35 Colonoscopy Report Procedure Description: PROCEDURES PERFORMED: 1. Colonoscopy PREOPERATIVE DIAGNOSIS: Screening colonoscopy POSTOPERATIVE DIAGNOSIS: Grade 1 internal hemorrhoids SURGEON: Domenico Klein MD INDICATION FOR PROCEDURE: the patient is a 54-year-old woman who does not have a family history of colon cancer and has no symptoms of concern due for her for screening. FINDINGS: No polyps. No inflammatory changes. No obvious diverticular disease. Grade 1 internal hemorrhoids present on retroflexion. SURVEILLANCE interval/FOLLOW-UP: 10 years SPECIMENS: None EBL: Minimal COMPLICATIONS: None QUALITY of prep: Excellent Procedure in detail: The patient gave written consent and was in agreement with the indications, the potential risks as well as the benefits of the procedure. They were taken to the endoscopy suite and laid in the left lateral decubitus position. A timeout was performed and anesthesia was administered which was tolerated well. I started the procedure. Digital rectal and visual examination was performed and grossly within normal limits. A well-lubricated flexible colonoscope was then introduced and passed without any notable difficulty all the way to the cecum identified by the ileocecal valve and the appendiceal orifice. The scope was then slowly withdrawn with the above-noted findings. The patient tolerated the procedure well and was taken to the PACU in hemodynami gertrude stable condition.
--- NOTE | 2024-11-15 09:35 | W.PM.DSUDISC ---
Date of service: 11/15/24 Discharge Plan Disposition Patient Disposition: Home Condition: Good Discharge Details Attending Provider: Lorenzo Klein Primary Care Provider: Kwesi Ocasio Home Meds and New Rx's Prescriptions: No Action bisacodyl [Dulcolax (bisacodyl)] 5 mg tablet,delayed release (DR/EC) 5 mg PO ONCE Qty: 4 0RF Rx Instructions: Take per colonoscopy instructions provided by ordering providers office polyethylene glycol 3350 17 gram/dose powder 17 g PO ONCE Qty: 238 0RF Rx Instructions: Take per colonoscopy instructions provided by ordering providers office magnesium chloride 64 mg tablet,delayed release (DR/EC) 64 mg PO DAILY multivitamin Tablet 1 tab PO DAILY cholecalciferol (vitamin D3) 50 mcg (2,000 unit) capsule 50 mcg PO DAILY Ozempic 0.25 mg or 0.5 mg (2 mg/3 mL) pen injector 0.25 mg subcut QWEEK Rx Instructions: for 4 weeks insulin degludec [Tresiba FlexTouch U-100] 100 unit/mL (3 mL) insulin pen 14 unit subcut QHS Berberine ES-5 200 mg capsule 200 mg PO DAILY cyproheptadine 4 MG tablet 4 - 8 mg PO HS PRN Patient Comments: 04/18/18 ER- Pt states she has not taken in a long time insulin lispro [Humalog KwikPen Insulin] 100 unit/mL insulin pen 1 sliding scale dose subcut DAILY PRN Patient Comments: 8-9 units ibuprofen [IBU] 600 mg tablet 600 mg PO ONCE Discharge Instructions Additional Instructions: FINDINGS: No polyps. No inflammatory changes. Nothing of concern. You have some mild hemorrhoid disease. This is extremely common and benign and nothing needs to be done about it. Repeat another colonoscopy in 10 years Activity:: Activity as Tolerated Diet:: As Tolerated
--- NOTE | 2024-11-15 09:42 | W.ANESPOSTOP ---
Postoperative Evaluation Date, Time and Location Date Performed: 11/15/24 Time Performed: 09:42 Patient Location: Day Surgery Unit Vital Signs Most Recent Imported Vital Signs: Most Recent Vital Signs Temp Pulse Resp BP Pulse Ox 36 C L 80 16 117/63 96 11/15/24 09:21 11/15/24 09:21 11/15/24 09:21 11/15/24 09:21 11/15/24 09:21 Pain Score Most Recent Pain Score: Most Recent Pain Score Pain Level 0 11/15/24 09:21 Assessment Mental Status: Awake (Alert & Oriented to Patient Baseline) Airway and Respiratory Function: Patent airway with normal (patient baseline) respiratory exam Cardiovascular Function: Hemodynamically Stable Hydration Status: Adequately Hydrated Nausea & Vomiting: No Nausea or Vomiting Pain: Pt. Denies Any Pain Peripheral Nerve Block: Patient did not receive a nerve block Postoperative Comments:: 6 units novolog ordered for BGL of 150. Patient taking PO intake.
[2024-11-15] MEDS: Insulin Aspart 300 UNITS/3 ML PEN 6 UNITS SC (09:47)
[2024-11-15 09:49] VITALS: BP 149/96; PULSE 84; RESP 16; TEMP 36.3; O2SAT 99
== END 2024-11-15 10:15 | disposition home or self-care (01) ==
PROVIDERS: PCP Physician Assistant; Visit Provider Student in an Organized Health Care Education/Training Program
PROC: 0DJD8ZZ Inspection of Lower Intestinal Tract, Via Natural or Artificial Opening Endoscopic (ICD-10-PCS; CPT 45378; principal; 2024-11-15 08:15)
DX: Z12.11 Encounter for screening for malignant neoplasm of colon (principal); K64.0 First degree hemorrhoids
CPT/HCPCS: 45378; J1815; J2704

== ENCOUNTER 2024-12-12 07:33 | Emergency (ER) | payer OTHER, SELFPAY ==
[2024-12-12 07:38] VITALS: BP 202/75; PULSE 83; RESP 18; TEMP 36.3; O2SAT 95
--- NOTE | 2024-12-12 07:47 | ED.GENADUL_ITS ---
Discharge Plan Disposition Patient Disposition: Home Condition: Stable Discharge Details Clinical Impression: Hypoglycemia, Type 1 diabetes mellitus Primary Care Provider: Kwesi Ocasio ED Provider: Neva Pace Home Meds and New Rx's Prescriptions: No Action bisacodyl [Dulcolax (bisacodyl)] 5 mg tablet,delayed release (DR/EC) 5 mg PO ONCE Qty: 4 0RF Rx Instructions: Take per colonoscopy instructions provided by ordering providers office polyethylene glycol 3350 17 gram/dose powder 17 g PO ONCE Qty: 238 0RF Rx Instructions: Take per colonoscopy instructions provided by ordering providers office magnesium chloride 64 mg tablet,delayed release (DR/EC) 64 mg PO DAILY multivitamin Tablet 1 tab PO DAILY cholecalciferol (vitamin D3) 50 mcg (2,000 unit) capsule 50 mcg PO DAILY Ozempic 0.25 mg or 0.5 mg (2 mg/3 mL) pen injector 0.25 mg subcut QWEEK Rx Instructions: for 4 weeks insulin degludec [Tresiba FlexTouch U-100] 100 unit/mL (3 mL) insulin pen 14 unit subcut QHS Berberine ES-5 200 mg capsule 200 mg PO DAILY cyproheptadine 4 MG tablet 4 - 8 mg PO HS PRN Patient Comments: 04/18/18 ER- Pt states she has not taken in a long time insulin lispro [Humalog KwikPen Insulin] 100 unit/mL insulin pen 1 sliding scale dose subcut DAILY PRN Patient Comments: 8-9 units ibuprofen [IBU] 600 mg tablet 600 mg PO ONCE Discharge Instructions Instructions: Low Blood Sugar, Adult ED Additional Instructions: You were seen in the emergency department today for evaluation of a low blood sugar. In our department you had a full physical examination performed, and received oral forms of glucose as well as intravenous glucose. Your laboratory studies were reassuring, and your urine showed no sign of infection. Your blood glucose improved and stabilized off of the intravenous sugar, and at this time it is safe for you to go home and follow-up with your partner provide as we discussed, you may need to make adjustments in your sliding scale insulin regimen given how low your sugar went today. Additionally, please maintain good hydration and nutrition, and please follow-up with your primary care provider in the next few days to discuss this visit and any symptoms that change, worsen, or persist. Thank you for allowing us to be part of your care. HPI General Mode of arrival: ambulatory . Date/Time Provider Initiated Documentation: 12/12/24 07:35 . Limitations to Documentation: no limitations . Information obtained by: patient, family and old records reviewed . HPI Narrative: HPI: This is a 54-year-old female patient with a past medical history signifi cant for type 1 diabetes, hyperlipidemia, presenting for evaluation of low blood glucose. The patient reports that she woke up around 4 AM this morning, and noticed her glucose to be running low in the 40s and 50s. She attempted to eat a pop tart, but states that she feels like she cannot eat anymore, and presented to care for assistance. She reports that yesterday she was in her normal state of health, and specifically has not had any recent fevers, illnesses, trauma, or changes to her insulin regimen. She cannot think of any inciting event for her low blood glucose, but does note that she often has highs and lows. This is an isolated complaint and the patient is otherwise in her normal state of health. She does not take any medication such as beta-blockers and has not had any new or changing medications to explain her low sugars. Exam: Gen: Awake and alert, in no apparent distress HEENT: Non-icteric sclera Neck: Supple Lungs: No apparent respiratory distress, normal respiratory effort. Lung sounds clear and equal bilaterally CV: Appears well perfused, heart with regular rate and rhythm, strong distal pulses Abdomen: Non-distended, soft, nontender MSK: Moves 4 extremities without apparent limitation in ROM. No peripheral edema Skin: Visualized skin without rashes, cyanosis. Neuro: Normal Gait, no obvious focal deficits or facial asymmetry. Speaks in full, clear sentences. Psych: Appropriate for situation. MDM: This is a 54-year-old female patient presenting for evaluation of low blood sugar. Differential includes but is not limited to underlying diabetes, ins ulin effect, certainly considered excessive insulin use, excessive exertion, decreased p.o. intake. The patient has no fever, tachycardia, or infectious symptoms to increase my concern for sepsis, though I did consider UTI, upper respiratory infection. No abdominal pain to suggest intra-abdominal pathology. Considered metabolic and electrolyte derangements, kidney injuries. The patient was provided with a tube of oral glucose as well as sugar containing soda and crackers with peanut butter. She was able to tolerate this oral intake. I note her initial blood glucose prior to treatment at 43. Will obtain laboratory studies to include CBC, CMP, magnesium, troponin, and urinalysis. I will start the patient on a D5 normal saline maintenance infusion to allow for gradual stabilization of her blood glucose, and will utilize a more concentrated sugar source if we do need to bolus at any point in her treatment. ED Course: I independently interpreted the laboratory studies, which show no significant leukocytosis, anemia, or thrombocytopenia. The chemistry panel is without evidence of electrolyte abnormality, kidney dysfunction, or liver injury. She does have evidence of low glucose at the time of lab draw, glucose 27 though our fingerstick and the patient CGM is currently reading 53. She tolerated a dose of oral glucose but persisted in her low glucose readings, and for this reason I provided her with 100 cc D10 intravenously. This increased her sugars to the 60s, patient continuing to feel symptomatic and a second bolus of 100 cc was provided. Troponin was negative, and with no chest pain or other cardiac symptoms I do not see an indication to proceed with delta troponin checks. Urinalysis noninfectious and without glucosuria. The patient tolerated a full meal, her blood glucose recovered into the high 100s, and she was taken off the D5 drip and monitored off that drip for over an hour to ensure that her blood glucose did not decline again. It stayed stable a nd at this time the patient reports she is feeling much improved. She has the ability to monitor her blood glucose in the home environment and is not taking any long-acting insulin and does not have an insulin pump that would put her at high risk for recurrent hypoglycemia. At this time, the patient has had a full medical evaluation and is safe for discharge to home. They are hemodynamically stable, ambulatory, and tolerating PO. They are understanding of the follow-up plan and return precautions. They left our facility without incident. Neva Pace MD Related Data Home Medications ?Medication ?Instructions ?Recorded ?Confirmed cyproheptadine 4 mg tablet 4 - 8 mg PO HS PRN 07/04/13 11/15/24 cholecalciferol (vitamin D3) 50 50 mcg PO DAILY 10/25/22 11/15/24 mcg (2,000 unit) capsule magnesium chloride 64 mg 64 mg PO DAILY 10/25/22 11/15/24 (magnesium chloride) tablet,delayed release multivitamin 1 tab PO DAILY 10/25/22 11/15/24 insulin lispro 100 unit/mL 1 sliding scale dose subcut DAILY 12/26/23 11/15/24 subcutaneous pen (Humalog KwikPen PRN (U-100) Insulin) dihydroberberine 200 mg capsule 200 mg PO DAILY 10/17/24 11/15/24 (Berberine ES-5) insulin degludec 100 unit/mL (3 14 unit subcut QHS 10/17/24 11/15/24 mL) subcutaneous pen (Tresiba FlexTouch U-100 insulin) semaglutide 0.25 mg or 0.5 mg (2 0.25 mg subcut QWEEK 10/17/24 11/14/24 mg/3 mL) subcutaneous pen injector (Ozempic) bisacodyl 5 mg tablet,delayed 5 mg PO ONCE #4 tabs 11/01/24 11/15/24 release (Dulcolax (bisacodyl)) polyethylene glycol 3350 17 17 g PO ONCE #238 grams 11/01/24 11/15/24 gram/dose oral powder ibuprofen 600 mg tablet (IBU) 600 mg PO ONCE 11/15/24 11/15/24 Previous Rx's ?Medication ?Instructions ?Recorded bisacodyl 5 mg tablet,delayed 5 mg PO ONCE #4 tabs 11/01/24 release (Dulcolax (bisacodyl)) polyethylene glycol 3350 17 17 g PO ONCE #238 grams 11/01/24 gram/dose oral powder Allergies Allergy/AdvReac Type Severity Reaction Status Date / Time Penicillins Allergy Severe Anaphylaxsi Verified 11/15/24 07:30 s erythromycin base Allergy Intermediate Skin Rash Verified 11/15/24 07:30 Tetracyclines Allergy Intermediate incontinent Verified 11/15/24 07:30 morphine AdvReac Intermediate Psychosis Verified 11/15/24 07:30 bupropion HCl (From AdvReac Unknown Agitation Verified 11/15/24 07:30 Wellbutrin) General Stated Complaint: Diabetes GINA: 2 Course Vital Signs Vital signs: Vital Signs Temperature 36.3 C L 12/12/24 07:38 Pulse 83 12/12/24 07:38 Respiratory Rate 18 12/12/24 07:38 Blood Pressure 202/75 H 12/12/24 07:38 Pulse Oximetry 95 12/12/24 07:38 Temperature 36.3 C L 12/12/24 07:38 Pulse 83 12/12/24 07:38 Respiratory Rate 18 12/12/24 07:38 Blood Pressure 202/75 H 12/12/24 07:38 Pulse Oximetry 95 12/12/24 07:38 Oxygen Delivery Method Room Air 12/12/24 07:38 Oxygen Flow Rate 0 12/12/24 07:38 Medical Decision Making Quality:SDOH Health Related Social Needs: No Data to Display PFSH All Active Problems (Updated 12/12/24 @ 12:46 by Neva Pace MD) Type 1 diabetes mellitus (Acute) Sepsis syndrome (Acute) Pyelonephritis (Acute) Hypoglycemia (Acute) Hyperlipidemia (Acute) Depression (Chronic) Onychomycosis (Acute) Plantar fascial fibromatosis of left foot (Acute) Pain in left foot (Acute) Calcaneal spur (Acute) Medical History (Updated 12/12/24 @ 12:46 by Neva Pace MD) PTSD (post-traumatic stress disorder) Per pt. do not touch legs and feet when waking up. Elbows and shoulders are OK to touch. 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 Pt. states she has not had one since 2013 Grief at loss of child Dissociative identity disorder COVID Diabetes Surgical History (Updated 11/16/24 @ 13:50 by Dianna Knapp) History of colonoscopy (~10/2024) 10 years History of carpal tunnel release of both wrists Hx of abdominal surgery R side Hx of section x 3 Hx of foot surgery left foot Hx of hysterectomy Social History Smoking/Tobacco Use Status: Never Smoking risk assessment performed?: Yes Alcohol Intake: never Drug use: Never Substance use type: does not use Housing: apartment Do you feel safe at home: Yes Do you feel safe in your relationship?: Yes Additional Social history: [employer]
[2024-12-12 07:57] LABS: Abs Immature Grans 0.02 10^3/uL (0.0-0.06); Absolute Basophil Count 0.05 10^3/uL (0.0-0.2); Absolute Eosinophil Count 0.16 10^3/uL (0.0-0.7); Absolute Lymphocyte Count 1.57 10^3/uL (1.2-3.4); Absolute Monocyte Count 0.63 10^3/uL (0.1-0.8); Absolute Neutrophil Count 4.33 10^3/uL (1.2-6.7); Basophils % 0.7 %; Eosinophils % 2.4 %; HCT 43.1 % (36.0-46.0); HGB 14.2 g/dL (11.2-15.7); Immature Grans % 0.3 %; Lymphocytes % 23.2 %; MCHC 32.9 % (32.0-36.0); MCV 88 fL (80-95); MPV 9.6 fL (8.0-11.0); Monocytes % 9.3 %; Neutrophils % 64.1 %; Platelet Count 151 10^3/uL (130-400); RBC 4.89 10^6/uL (3.93-5.22); RDW 13.2 % (11.7-14.6); RDW-SD 43.1 fL; WBC 6.76 10^3/uL (4.4-10.8)
[2024-12-12] MEDS: DEXTROSE 5%-0.9% SALINE 1,000 ML 150 ML IV (07:57)
[2024-12-12] MEDS: Ondansetron 4 MG/2 ML VIAL IVP (08:09)
[2024-12-12 08:17] LABS: ALT 23 U/L (14-59); AST 16 U/L (15-37); Albumin 3.5 g/dL (3.4-5.0); Alkaline Phosphatase 99 U/L (46-116); Anion Gap 6.9 mmol/L (3-11); BUN 15 mg/dL (7-18); Bilirubin, Total 0.4 mg/dL (0.2-1.0); CO2 30.1 mmol/L (21.0-32.0); CREATININE 0.8 mg/dL (0.55-1.02); Calcium 8.7 mg/dL (8.5-10.1); Chloride 109 mmol/L (98-107); Potassium 3.6 mmol/L (3.5-5.1); Sodium 146 mmol/L (136-145)
--- NOTE | 2024-12-12 08:17 | NUR.NOTE ---
Nursing Note: on arrival to department pt BS 43 with finger stick pt decline glucose gel that was provided by department then instructed to drink raymond tao and eat cracker with peanut butter, and own glucose tablets 4mg glucose/tablet. PT has eaten x2 tablets at this time
[2024-12-12 08:18] VITALS: BP 168/68; PULSE 79; O2SAT 94
[2024-12-12 08:18] LABS: Glucose 27 mg/dL (74-106); Troponin I < 4 ng/L (<or=51)
[2024-12-12 08:20] VITALS: BP 202/75; PULSE 83; RESP 18; TEMP 36.3; O2SAT 95
[2024-12-12 08:32] VITALS: BP 180/73; PULSE 78; O2SAT 94
[2024-12-12 08:46] VITALS: BP 193/64; PULSE 81; O2SAT 94
[2024-12-12] MEDS: DEXTROSE 10%-WATER 500 ML 200 ML IV (08:51)
[2024-12-12 09:16] VITALS: BP 172/77; PULSE 77; O2SAT 97
[2024-12-12 09:29] LABS: Bilirubin Negative (Negative); Blood Negative (Negative); Clarity Clear (Clear); Glucose Negative (Negative); Ketones Negative (Negative); Leukocyte Esterase Negative (Negative); Nitrite Negative (Negative); Urobilinogen 0.2 mg/dL (Up to 0.2); pH 6.5 (5-8)
== END 2024-12-12 12:57 | disposition home or self-care (01) ==
PROVIDERS: Emergency Provider Emergency Medicine; PCP Physician Assistant
DX: E10.649 Type 1 diabetes mellitus with hypoglycemia without coma (principal); E78.5 Hyperlipidemia, unspecified; Z79.4 Long term (current) use of insulin; Z79.85 Long-term (current) use of injectable non-insulin antidiabetic drugs
CPT/HCPCS: 80053; 82962; 96365; 96366; 96375; 99284; 81003; 83735; 84484; 85025; J2405; J7042

== ENCOUNTER 2025-05-30 12:53 | Outpatient (CLI) | payer OTHER, SELFPAY ==
--- NOTE | 2025-05-30 | DI.RAD_ITS ---
Exam(s) XR KNEE RT 3V AP,LAT,GARCÍA EXAM: XR KNEE RT 3V AP,LAT,GARCÍA CLINICAL HISTORY: ACUTE PAIN OF R KNEE, M25.561. TECHNIQUE: 2D digital imaging was performed. Three views. COMPARISON: No exams were available for comparison FINDINGS: Exam is mildly limiting by overlying material. BONES: No acute fracture is present. No bony destructive lesion is seen. JOINTS: The knee is normally aligned. The joint spaces are maintained. No joint effusion is seen. SOFT TISSUE: Normal. IMPRESSION: Unremarkable radiographs of the right knee. DATA REPOSITORY: RADIATION DOSE DELIVERED:
== END 2025-05-30 13:13 ==
LOC: DI 07-26 12:53
PROVIDERS: PCP Physician Assistant; Visit Provider Physician Assistant Medical
DX: M25.561 Pain in right knee (principal)
CPT/HCPCS: 73562

== ENCOUNTER 2025-07-04 15:50 | Outpatient (REF) | payer OTHER, SELFPAY ==
[2025-07-04 19:38] LABS: COMMENT (LAB VIEW ONLY) 159.87 mg/dL; Microalb ug/mg Crea 5.2 ug/mg Cr
== END 2025-07-04 15:51 | disposition home or self-care (01) ==
LOC: NCHCN 15:50
PROVIDERS: PCP Physician Assistant; Visit Provider Physician Assistant
DX: E11.9 Type 2 diabetes mellitus without complications (principal)
CPT/HCPCS: 82043; 82570

== ENCOUNTER 2025-07-25 08:30 | Outpatient (CLI) | payer OTHER, SELFPAY ==
[2025-07-25 09:44] LABS: ALT 29 U/L (14-59); AST 18 U/L (15-37); Albumin 3.5 g/dL (3.4-5.0); Alkaline Phosphatase 100 U/L (46-116); Anion Gap 8.6 mmol/L (3-11); BUN 18 mg/dL (7-18); Bilirubin, Total 0.4 mg/dL (0.2-1.0); CO2 27.4 mmol/L (21.0-32.0); Calcium 8.7 mg/dL (8.5-10.1); Chloride 106 mmol/L (98-107); Cholesterol 160 mg/dL (<200); Glucose 97 mg/dL (74-106); HDL Cholesterol 53 mg/dL (>or=50); Potassium 4.1 mmol/L (3.5-5.1); Sodium 142 mmol/L (136-145); TSH 1.28 uIU/mL (0.36-3.74); Total Protein 7.2 g/dL (6.4-8.2)
== END 2025-07-25 08:31 | disposition home or self-care (01) ==
PROVIDERS: PCP Physician Assistant; Visit Provider Internal Medicine Endocrinology, Diabetes & Metabolism
DX: E11.9 Type 2 diabetes mellitus without complications (principal); E13.42 Other specified diabetes mellitus with diabetic polyneuropathy
CPT/HCPCS: 36415; 80053; 80061; 84439; 84443; 84681

== ENCOUNTER → 2025-08-05 02:27 | Outpatient (CLI) | payer OTHER, SELFPAY ==
--- NOTE | 2025-08-05 | DI.MRI_ITS ---
Exam(s) MR LOWER JOINT RT WO EXAM: MR LOWER JOINT RT WO CLINICAL HISTORY: PAIN RT KNEE M25.561 VALGUS INJURY RT KNEE ? MEDIAL MENISCAL PATHOLOGY TECHNIQUE: Multiplanar multisequence MRI of the knee was performed. COMPARISON: CR XR KNEE RT 3V AP,LAT,GARCÍA from 05/30/2025 FINDINGS: EFFUSION: There is a moderate size joint effusion. There is no Fagan cyst in the medial popliteal fossa but there is a posterior periarticular non septated ganglion cyst measuring 3rd 18 x 9 by 10 mm. MARROW:There is no evidence of fracture, bone contusion, nor osteochondral defects.. There are no significant osseous lesions. PATELLOFEMORAL COMPARTMENT: The quadriceps tendon is intact. The patellar ligament is intact. There is mild-moderate thinning of the retropatellar cartilage over the lateral facet, more so inferiorly than superiorly. There is relative preservation of the articular cartilage over the medial facet of the patella. There is no intraosseous edema in the posterior patella nor degenerative cysts. There is no osteochondral defect at this level.There is no intraosseous signal to suggest recent patellar dislocation. There are no patellar retinacular tears. CRUCIATE LIGAMENTS: There is significant signal abnormality in the superior aspect of the anterior cruciate ligament consistent with partial tearing. The lower 2/3 of the ACL appears unremarkable.The posterior cruciate ligament is intact. MEDIAL COMPARTMENT/MEDIAL MENISCUS: There are no tears of the medial meniscus evident.. There is only minimal thinning of the articular cartilage over the medial femoral condyle. No subarticular edema. No osteochondral defects.No marginal osteophytes. MEDIAL COLLATERAL LIGAMENT: Intact LATERAL COMPARTMENT/LATERAL MENISCUS: Posterior horn of the lateral meniscus appears intact. There is subtle suggestion of a tear at the junction of the body and anterior horn of the medial meniscus. No displaced fragments.There is mild thinning of the articular cartilage over the will condyle. No subarticular edema nor osteochondral defects. No osteophytes. ILIOTIBIAL BAND: Intact LATERAL COLLATERAL LIGAMENT COMPLEX: The fibular collateral ligament is intact. The biceps femoris tendon is intact.Popliteus muscle and tendon are intact. IMPRESSION: 1. There is signal abnormality in the superior 3rd of the anterior cruciate ligament suspicious for partial tearing of this structure. The posterior cruciate ligament appears intact 2. Subtle suggestion of tear at the junction of the anterior horn and body of the lateral meniscus. No evidence of tear in the medial meniscus. 3. There are minimal degenerative changes in the medial lateral compartments. 4. There is mild edema and narrowing of the retropatellar cartilage over the lateral facet. There is no abnormal signal in the patella itself. 5. There is moderate size knee joint effusion. There are no obvious loose intra-articular bodies. DATA REPOSITORY:
== END ==
LOC: DI 02:27
PROVIDERS: PCP Physician Assistant; Visit Provider Physician Assistant
DX: M25.561 Pain in right knee (principal); R93.89 Abnormal findings on diagnostic imaging of other specified body structures
CPT/HCPCS: 73721

== ENCOUNTER 2025-08-05 03:18 | Outpatient (CLI) | payer OTHER, SELFPAY ==
--- NOTE | 2025-08-15 08:14 | TELEFU_ITS ---
Date of service: 08/05/25 Time of Service: 14:00 Nutrition Note NOTE: Renetta referred to nutrition for guidance in weight management. A1C 6.2% at last PCP appt earlier this fall. BMI 46.6 at the same appt She has been out of insulin for the last 2 days and plans to get NELLY - monitors glucose with CGM. 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 After some interviewing and Renetta going through her day it appears her days are not typical and unpredictable. When she is working she is subject to a lot of highly processed foods that others keep around. We discussed some trouble shooting ideas as she doesn't plan on changing her job. 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 -encouraged to avoid skipping meals - the signficant meals or even 5 small meals as goal depending on what feels more achievable. -Reviewed importance of both activity and strength training -reviewed fiber and low kcal protein will be a priority at every eating opportunity. -Encouraged continued water intake (she drinks green tea and lemon water routinely I encouraged to her to use interactive menu planning to work within the following recommendations for macros and other nutritients and showed her how to refine towards her preferences, food budget, and many other factors: Suggested goals of 2100kcals (estimated energy need currently 2851), 157g protein (goal of 1.2-1.7g/kg AjBW), and 70g total fat. with additional goals of <40g added sugar per day and >30g fiber per day. Sent menu planning info via email and Renetta will reply with any questions, or desire for follow up for more trouble shooting her busy/hectic work environment. Time Spent in Nutritional Counseling and Treatment: 30 min
== END 2025-08-05 03:19 | disposition home or self-care (01) ==
LOC: DS 03:18
PROVIDERS: PCP Physician Assistant; Visit Provider Dietitian, Registered
DX: E11.9 Type 2 diabetes mellitus without complications (principal)
CPT/HCPCS: 00123; 97802